=== PATIENT | female | born 1955 | race Caucasian/White ===

== ENCOUNTER 2016-05-27 13:20 | Emergency (ER) | payer BC ==
[2016-05-27 13:31] VITALS: BMI 25.0
--- NOTE | 2016-05-27 15:58 | PDOC ---
History of Present Illness - General History Source: Patient Exam Limitations: No Limitations - History of Present Illness Initial Comments: 05/27/16 18:28 The patient is a 60 year old female, with significant past medical history of HTN, who presents to the emergency room complaining of 3 days of LLQ pain. The patient states that the pain started on Saturday, 3 days ago, as a dull ache while sitting at her desk at work. The pain is nonradiating, constant, and exacerbated upon movement and after eating. The pain has progressively worsened since Saturday. She states that she took medicine to calm her stomach and had an episode of diarrhea. Her last meal was dinner last night, Denies heavy lifting, strenuous activity. Denies fever, chills, nausea, vomiting. Denies constipation. Denies urinary changes, hematuria. Allergies: naproxen, penicillin Social Hx: Tobacco use. Surgical Hx: hysterectomy PCP: Dr. Pelayo <Samantha Gordon - Last Filed: 05/27/16 18:28> <Gurvinder Doll - Last Filed: 05/28/16 02:15> - General Chief Complaint: Pain Stated Complaint: ABD PAIN (REFERRED) Time Seen by Provider: 05/27/16 15:30 Past History <Samantha Gordon - Last Filed: 05/27/16 18:28> - Past Medical History HTN: Yes - Psycho/Social/Smoking Cessation Hx Anxiety: No Suicidal Ideation: No Smoking History: Current some day smoker Number of Cigarettes Smoked Daily: 2 Information on smoking cessation initiated: No Hx Alcohol Use: No Drug/Substance Use Hx: No Substance Use Type: None <Gurvinder Doll - Last Filed: 05/28/16 02:15> - Past Medical History Allergies/Adverse Reactions: Allergies Allergy/AdvReac Type Severity Reaction Status Date / Time naproxen Allergy Hives Verified 05/27/16 13:31 Penicillins Allergy Hives Verified 05/27/16 13:31 Home Medications: Ambulatory Orders Lisinopril/Hydrochlorothiazide [Lisinopril-Hctz 20-25 Mg Tab] 1 each PO DAILY tablet 08/15/13 Pravastatin Sodium [Pravachol (Nf)] 40 mg PO HS 05/27/16 Ranitidine [Zantac -] 150 mg PO BID 04/09/17 Levofloxacin [Levaquin] 750 mg PO TID #7 tablet 05/28/16 Metronidazole [Flagyl -] 500 mg PO DAILY #14 tablet 05/28/16 Oxycodone HCl/Acetaminophen [Percocet 5-325 mg Tablet -] 1 combo PO Q6H PRN #14 tablet MDD 4 05/28/16 Review of Systems - Review of Systems Able to Perform ROS?: Yes Comments:: 05/27/16 18:28 CONSTITUTIONAL: No reported: Fever, Chills, Diaphoresis, Generalized Weakness, Malaise, Loss of Appetite HEENT: No reported: Rhinorrhea, Nasal Congestion, Throat Pain, Throat Swelling, Difficulty Swallowing, Mouth Swelling, Ear Pain, Eye Pain, Visual Changes CARDIOVASCULAR: No reported: Chest Pain, Syncope, Palpitations, Irregular Heart Rate, Lightheadedness, Peripheral Edema RESPIRATORY: No reported: Cough, Shortness of Breath, SOB with Exertion, Orthopnea, Wheezing , Stridor, Hemoptysis GASTROINTESTINAL: Reported: LLQ pain No reported: Abdominal Distension, Nausea, Vomiting, Diarrhea, Constipation, Melena, Hematochezia GENITOURINARY: No reported: Dysuria, Frequency, Urgency, Hesitancy, Flank Pain, Genital Pain MUSCULOSKELETAL: No reported: Myalgia, Arthralgia, Joint Swelling, Back pain, Neck Pain SKIN: No reported: Rash, Itching, Pallor HEMEATOLOGIC/IMMUNOLOGIC: No reported: Easy Bleeding, Easy Bruising, Lymphadenopathy, Frequent infections ENDOCRINE: No reported: Unexplained Weight Gain, Unexplained Weight Loss, Heat Intolerance , Cold Intolerance NEUROLOGIC: No reported: Headache, Focal Weakness, Paresthesias, Vertigo, Lightheadedness, Unsteady Gait, Seizure, Mental Status Changes, Incontinence PSYCHIATRIC: No reported: Anxiety, Depression <Samantha Gordon - Last Filed: 05/27/16 18:28> *Physical Exam - Vital Signs Last Vital Signs Temp Pulse Resp BP Pulse Ox 98.7 F 93 H 20 164/92 98 05/27/16 13:27 05/27/16 13:27 05/27/16 13:27 05/27/16 13:27 05/27/16 13:27 - Physical Exam Comments: 05/27/16 18:28 GENERAL: The patient is awake, alert, and fully oriented, Nontoxic - in no acute distress. HEAD: Normocephalic, atraumatic. EYES: extraocular movements intact, sclera anicteric, conjunctiva clear. ENT: Normal voice, Moist mucous membranes. NECK: Normal range of motion, supple LUNGS: Breath sounds equal, clear to auscultation bilaterally. No wheezes, no rhonchi, no rales. HEART: Regular rate and rhythm, normal S1 and S2 without murmur, rub or gallop. ABDOMEN: +voluntary guarding and LLQ tenderness, no rebound EXTREMITIES: Normal range of motion, no edema. No clubbing or cyanosis. No cords, erythema, or tenderness. NEUROLOGICAL: No facial assymetry, Normal speech, PSYCH: Normal mood, normal affect. SKIN: Warm, Dry, normal turgor, <Samantha Gordon - Last Filed: 05/27/16 18:28> - Vital Signs Last Vital Signs Temp Pulse Resp BP Pulse Ox 98.7 F 93 H 20 164/92 98 05/27/16 13:27 05/27/16 13:27 05/27/16 13:27 05/27/16 13:27 05/27/16 13:27 <Gurvinder Doll - Last Filed: 05/28/16 02:15> ED Treatment Course - LABORATORY CBC & Chemistry Diagram: 05/27/16 16:54 05/27/16 16:54 - ADDITIONAL ORDERS Additional order review: Laboratory Results 05/27/16 16:35 Urine Color Straw Urine Appearance Clear Urine pH 7.0 Ur Specific [place] 1.005 Urine Protein Negative Urine Glucose (UA) Negative Urine Ketones Negative Urine Blood 1+ H Urine Nitrite Negative Urine Bilirubin Negative Urine Urobilinogen Negative Ur Leukocyte Esterase Trace H Urine RBC <1 Urine WBC 2 Ur Epithelial Cells Rare 05/27/16 16:54 RBC 4.12 MCV 90.7 MCHC 33.5 RDW 13.4 MPV 11.1 Neutrophils % 70.6 Lymphocytes % 16.3 Monocytes % 11.6 H Eosinophils % 0.8 Basophils % 0.7 - Medications Given in the ED: ED Medications Discontinued Medications Generic Name Dose Route Start Last Admin Trade Name Freq PRN Reason Stop Dose Admin Sodium Chloride 1,000 mls @ 1,000 mls/hr 05/27/16 16:29 05/27/16 18:06 Normal Saline - IV 05/27/16 17:28 1,000 mls/hr .Q1H ONE Administration Morphine Sulfate 2 mg 05/27/16 16:29 05/27/16 18:04 Morphine Injection - IVPUSH 05/27/16 16:30 2 mg ONCE ONE Administration <Samantha Gordon - Last Filed: 05/27/16 18:28> - LABORATORY CBC & Chemistry Diagram: 05/27/16 16:54 05/27/16 16:54 <Gurvinder Doll - Last Filed: 05/28/16 02:15> Medical Decision Making - Medical Decision Making 05/27/16 23:34 60y F presents with LLQ pain on exam pt has noted tenderness in the LLQ CT c/w acute diverticulitis w/o complications pt requiring multiple narcotic meds - will admit for further management of diverticulitis willg georgette flagyl/levaquin will notify dr. alejandro 05/27/16 23:37 discussed with the pt - she state she feels well currently and would rather go home - will observe the pt for the next hr or two as she is getting abx - if she is feeling well and not needing iv narcotics will d/c with outpatient management of diverticulitis 05/28/16 02:14 pt feeling improved will dc the pt for outpatient management of diverticulitis will hvae pt fu with dr. pelayo tomorrow or saturday return precautions were discussed I discussed the physical exam findings, ancillary test results and final diagnoses with the patient. I answered all of the patient's questions. The patient was satisfied with the care received and felt comfortable with the discharge plan and treatment plan. The patient will call their primary care physician within 24 hours to arrange follow-up and will return to the Emergency Department with any new, persistent or worsening symptoms. <Gurvinder Doll - Last Filed: 05/28/16 02:15> *DC/Admit/Observation/Transfer - Attestations Scribe Attestion: 05/27/16 18:28 Documentation prepared by PHOEBE Negrete, acting as medical accountant for Gurvinder Doll MD. <Samantha Gordon - Last Filed: 05/27/16 18:28> - Discharge Dispostion Admit: No <Gurvinder Doll - Last Filed: 05/28/16 02:15> Diagnosis at time of Disposition: Diverticulitis Qualifiers: Diverticulitis site: large intestine Diverticulitis bleeding: without bleeding Diverticulitis complication: without perforation or abscess Qualified Code(s): K57.32 - Diverticulitis of large intestine without perforation or abscess without bleeding - Discharge Dispostion Disposition: HOME Condition at time of disposition: Improved - Prescriptions Prescriptions: Metronidazole [Flagyl -] 500 mg PO DAILY #14 tablet Levofloxacin [Levaquin] 750 mg PO TID #7 tablet Oxycodone HCl/Acetaminophen [Percocet 5-325 mg Tablet -] 1 combo PO Q6H PRN #14 tablet MDD 4 PRN Reason: Pain - Referrals Referrals: Ayaan Pelayo MD [Primary Care Provider] - - Patient Instructions Printed Discharge Instructions: DI for Diverticulitis Additional Instructions: Return to the emergency department immediately with ANY new, persistent or worsening symptoms including worsening abdominal pain, fevers, inability to tolerate oral intake, chest pain, shortness of breath or any other concerns. Stay well hydrated. You MUST call and follow up with your doctor tomorrow. Your emergency department visit is not complete without a followup with your doctor for reevaluation. Please make sure your doctor reviews the results of your emergency evaluation. Print Language: SAMI
[2016-05-27] MEDS ORDERED: SODIUM CHLORIDE 1,000 ML IV ONE (16:29)
[2016-05-27] MEDS ORDERED: morphine CARPU-JECT 2 MG/1 ML DISP.SYRIN IVPUSH ONE (16:29)
[2016-05-27 16:50] LABS: URINE APPEARANCE CLEAR; URINE BILIRUBIN NEGATIVE (NEGATIVE); URINE BLOOD 1+ (NEGATIVE); URINE COLOR STRAW; URINE GLUCOSE (UA) NEGATIVE (NEGATIVE); URINE KETONE NEGATIVE (NEGATIVE); URINE LEUK ESTERASE TRACE (NEGATIVE); URINE NITRITE NEGATIVE (NEGATIVE); URINE PROTEIN NEGATIVE (NEGATIVE); URINE UROBILINOGEN NEGATIVE E.U./dl (0.2-1.0)
[2016-05-27 16:52] LABS: URINE RBC <1 /hpf (0-3); URINE WBC 2 /hpf (3-5)
[2016-05-27 17:36] LABS: RDW 13.4 % (11.6-15.6)
[2016-05-27 17:40] LABS: BASOPHIL 0.7 % (0-2.0); EOSINOPHIL 0.8 % (0-4.5); MCH 30.4 pg (25.7-33.7); MCHC 33.5 g/dl (32.0-36.0); MEAN CELL VOLUME 90.7 fl (80-96); MEAN PLT VOLUME 11.1 fl (7.5-11.1); NEUTROPHILS 70.6 % (42.8-82.8); PLATELET COUNT 161 K/MM3 (134-434); WHITE BLOOD COUNT 10.3 K/mm3 (4.0-10.0)
[2016-05-27] MEDS ORDERED: morphine CARPU-JECT 2 MG/1 ML DISP.SYRIN ONE (17:54)
[2016-05-27 18:26] LABS: ALBUMIN 3.7 g/dl (3.4-5.0); BILIRUBIN,TOTAL 0.6 mg/dL (0.2-1.0); CALCIUM 8.7 mg/dL (8.5-10.1); COCKROFT - GAULT 50.1245; CREATININE 1.2 mg/dL (0.55-1.02); TOT PROT 6.7 g/dl (6.4-8.2)
[2016-05-27] MEDS ORDERED: morphine CARPU-JECT 4 MG/1 ML DISP.SYRIN IVPUSH ONE (21:05)
[2016-05-27] MEDS ORDERED: morphine CARPU-JECT 4 MG/1 ML DISP.SYRIN ONE (22:49)
[2016-05-27] MEDS ORDERED: METRONIDAZOLE 500 MG PREMIXED 100 ML IVPB ONE (23:33)
[2016-05-27] MEDS ORDERED: LEVOFLOXACIN 750 MG IVPB 150 ML IVPB ONE ×2 (23:33→23:45)
[2016-05-28] MEDS ORDERED: METRONIDAZOLE 500 MG PREMIXED 100 ML IVPB ONE (01:24)
[2016-05-28 02:23] VITALS: BP 119/46; PULSE 59; TEMP 98.1
== END 2016-05-28 02:20 | disposition home or self-care (01) ==
LOC: JER 13:20
PROC: 3E03329 Introduction of Other Anti-infective into Peripheral Vein, Percutaneous Approach (ICD-10-PCS; principal; 2016-05-27)
PROC: 3E03329 Introduction of Other Anti-infective into Peripheral Vein, Percutaneous Approach (ICD-10-PCS; 2016-05-27)
PROC: 3E033NZ Introduction of Analgesics, Hypnotics, Sedatives into Peripheral Vein, Percutaneous Approach (ICD-10-PCS; 2016-05-27)
DX: K57.20 Diverticulitis of large intestine with perforation and abscess without bleeding (principal); I10 Essential (primary) hypertension
CPT/HCPCS: 36415; 74177-TC; 80053; 81003; 81015; 85025; 99283-25

== ENCOUNTER 2018-06-26 10:07 | Inpatient (IN) | payer BC ==
[2018-06-26] MEDS ORDERED: morphine CARPU-JECT 4 MG/1 ML DISP.SYRIN IVPUSH ONE (11:13)
[2018-06-26] MEDS ORDERED: ONDANSETRON 4 MG/2 ML VIAL IVPUSH ONE (11:13)
[2018-06-26] MEDS ORDERED: SODIUM CHLORIDE 1,000 ML IV STA (11:13)
--- NOTE | 2018-06-26 11:26 | PDOC ---
History of Present Illness - General Chief Complaint: Pain, Acute Stated Complaint: FEVER, ABD PAIN Time Seen by Provider: 06/26/18 11:07 History Source: Patient Exam Limitations: No Limitations - History of Present Illness Initial Comments: 06/26/18 11:21 Patient is a 62F with history of diverticulitis and hysterectomy here today complaining of LLQ pain that started two days ago. Patient was evaluated at urgent care and given cipro/flagyl, but has not been able to keep medicine down due to vomiting. Patient states that this feels like her prior episode of diverticulitis. Denies dysuria, last bowel movement this morning, endorses some loose stool. Denies chest pain, shortness of breath. Past History - Past Medical History Allergies/Adverse Reactions: Allergies Allergy/AdvReac Type Severity Reaction Status Date / Time naproxen Allergy Hives Verified 06/26/18 10:29 Penicillins Allergy Hives Verified 06/26/18 10:29 Home Medications: Ambulatory Orders Lisinopril/Hydrochlorothiazide [Lisinopril-Hctz 20-25 Mg Tab] 1 each PO DAILY tablet 08/15/13 Pravastatin Sodium [Pravachol (Nf)] 40 mg PO HS 05/27/16 Ranitidine [Zantac -] 150 mg PO BID 05/27/16 Levofloxacin [Levaquin] 750 mg PO TID #7 tablet 05/28/16 Oxycodone HCl/Acetaminophen [Percocet 5-325 mg Tablet -] 1 combo PO Q6H PRN #14 tablet MDD 4 05/28/16 metroNIDAZOLE [Flagyl -] 500 mg PO DAILY #14 tablet 05/28/16 COPD: No GI Disorders: Yes (diverticulitis) HTN: Yes - Suicide/Smoking/Psychosocial Hx Smoking History: Never smoked Number of Cigarettes Smoked Daily: 2 Hx Alcohol Use: No Drug/Substance Use Hx: No Substance Use Type: None Review of Systems - Review of Systems Able to Perform ROS?: Yes Comments:: 06/26/18 11:24 GENERAL/CONSTITUTIONAL: No fever or chills. No weakness. HEAD, EYES, EARS, NOSE AND THROAT: No change in vision. No sore throat. CARDIOVASCULAR: No chest pain or shortness of breath RESPIRATORY: No cough, wheezing, or hemoptysis. GASTROINTESTINAL: +nausea, +vomiting, +diarrhea. GENITOURINARY: No dysuria, frequency, or change in urination. MUSCULOSKELETAL: No joint or muscle swelling or pain. No neck or back pain. SKIN: No rash NEUROLOGIC: No headache, vertigo, loss of consciousness, or change in strength/ sensation. HEMATOLOGIC/LYMPHATIC: No anemia, easy bleeding, or history of blood clots. ALLERGIC/IMMUNOLOGIC: No hives or skin allergy. *Physical Exam - Vital Signs Last Vital Signs Temp Pulse Resp BP Pulse Ox 98.6 F 78 16 146/76 99 06/26/18 10:06/26/18 10:06/26/18 10:06/26/18 10:06/26/18 10:26 - Physical Exam Comments: 06/26/18 11:26 GENERAL: Awake, alert, and fully oriented, in no acute distress HEAD: No signs of trauma, normocephalic, atraumatic EYES: PERRLA, EOMI, sclera anicteric, conjunctiva clear ENT: Auricles normal inspection, hearing grossly normal, nares patent, oropharynx clear without exudates. Moist mucosa NECK: Normal ROM, supple, no lymphadenopathy, JVD, or masses LUNGS: No distress, speaks full sentences, clear to auscultation bilaterally HEART: Regular rate and rhythm, normal S1 and S2, no murmurs, rubs or gallops, peripheral pulses normal and equal bilaterally. ABDOMEN: Soft, LLQ tenderness. No guarding, no rebound. No masses EXTREMITIES: Normal inspection, Normal range of motion, no edema. No clubbing or cyanosis. NEUROLOGICAL: Cranial nerves II through XII grossly intact. Normal speech, no focal sensorimotor deficits SKIN: Warm, Dry, normal turgor, no rashes or lesions noted. ED Treatment Course - LABORATORY CBC & Chemistry Diagram: 06/27/18 07:40 06/27/18 07:40 - RADIOLOGY Radiology Studies Ordered: Category Date Time Status ABDOMEN & PELVIS CT WITH CONTR [CT] Stat CT Scan 06/26/18 11:14 Ordered Medical Decision Making - Medical Decision Making 06/26/18 11:29 Patient is 62F with history of hysterectomy and diverticulitis here today with LLQ pain. Vitals normal and stable. DDx includes, but is not limited to: UTI, diverticulitis, colitis. Suspect diverticulitis and that patient will require admission due to inability to tolerate her medication. Will treat initially with fluids, morphine, zofran. 06/26/18 12:35 CBC normal. CMP shows Cr of 4.2, last 1.2 in 2017. ~10:1 BUN:Cr ratio, not consistent with pre-renal etiology, but still possible given vomiting and diarrhea. No gap. K normal. Given lower quality of CT without contrast, will cover empirically with levaquin 750 (renal adjustment is for next dose in 48 hours) and metronidazole ( no renal adjustment). Pain improved with morphine. No vomiting after zofran. 06/26/18 14:03 CT scan shows diverticulitis. Will admit. Savannah Guillory paged. *DC/Admit/Observation/Transfer Diagnosis at time of Disposition: Diverticulitis Qualifiers: Diverticulitis site: large intestine Diverticulitis bleeding: without bleeding Diverticulitis complication: without perforation or abscess Qualified Code(s): K57.32 - Diverticulitis of large intestine without perforation or abscess without bleeding - Discharge Dispostion Condition at time of disposition: Stable - Referrals - Patient Instructions - Post Discharge Activity
[2018-06-26 11:44] LABS: EOS % 0.3 % (0-4.5); HEMATOCRIT 37.1 % (32.4-45.2); HEMOGLOBIN 12.4 GM/dL (10.7-15.3); LYMPH % 17.2 % (8-40); MCHC 33.4 g/dl (32.0-36.0); MEAN CELL VOLUME 92.7 fl (80-96); MEAN PLT VOLUME 10.8 fl (7.5-11.1); MONO % 12.9 % (3.8-10.2); NEUT % 68.6 % (42.8-82.8); PLATELET COUNT 229 K/MM3 (134-434); RDW 12.9 % (11.6-15.6); WHITE BLOOD COUNT 8.7 K/mm3 (4.0-10.0)
[2018-06-26] MEDS ORDERED: morphine SULFATE 4 MG/ML VIAL ONE (11:48)
[2018-06-26] MEDS ORDERED: ONDANSETRON 4 MG/2 ML VIAL ONE (11:49)
[2018-06-26 12:06] LABS: INR 1.23 (0.83-1.09); PROTHROMBIN TIME (PATIENT) 14.5 SEC (9.7-13.0)
[2018-06-26 12:12] LABS: ALBUMIN 4.1 g/dl (3.4-5.0); BILIRUBIN,TOTAL 0.4 mg/dL (0.2-1); CALCIUM 10.3 mg/dL (8.5-10.1); CREATININE 4.2 mg/dL (0.55-1.3); POTASSIUM 4.2 mmol/L (3.5-5.1); TOT PROT 7.6 g/dl (6.4-8.2)
--- NOTE | 2018-06-26 12:27 | PDOC ---
Documentation entered by Sylwia Ibarra SCRIBE, acting as scribe for Chris Prasad MD. Chris Prasad MD: This documentation has been prepared by the Stacey wiley Amanda, SCRIBE, under my direction and personally reviewed by me in its entirety. I confirm that the documentation accurately reflects all work, treatment, procedures, and medical decision making performed by me. Attending Attestation - Resident Resident Name: Jordan Urrutia - HPI HPI: 06/26/18 11:40 The patient is a 62 year old female with a significant history of diverticulitis (last episode in 2018) and hysterectomy, who presents to the ED with complaint of left lower quadrant pain for 8 days. Two days ago went to urgent care and started on cipro and flagyl, but reports inability to tolerate anything by PO secondary to nausea and vomiting. She states this feels like her prior episode of diverticulitis. Has persistent/worsening LLQ pain and pain with defecation, no bloody stool. temp 99.8 last night. never had colonoscopy. She denies CP, SOB, dizziness, headache, palpitations. She denies dysuria and hematuria. Allergies: naproxen, penicillins - Physicial Exam PE: 06/26/18 11:45 GENERAL: The patient is awake, alert, and fully oriented, in no acute distress. HEAD: Normal with no signs of trauma. EYES: Pupils equal, round and reactive to light, extraocular movements intact, sclera anicteric, conjunctiva clear with no pallor. ENT: oropharynx clear. Dry mucous membranes. LUNGS: Breath sounds equal, clear to auscultation bilaterally. No wheeze/ crackles. HEART: Regular rate and rhythm, normal S1 and S2 without murmur or rub. ABDOMEN: Soft/nondistended. BS wnl. Tender with LLQ guarding, + rebound. No CVAT. No palpable masses. No hepatosplenomegaly. EXTREMITIES: Normal range of motion, no edema. No clubbing or cyanosis. No cords, erythema, or tenderness. NEUROLOGICAL: Cranial nerves II through XII grossly intact. Normal speech, normal gait. PSYCH: Normal mood, normal affect. SKIN: Warm, Dry, normal turgor, no rashes or lesions noted. - Medical Decision Making 05/09/19 12:26 62y/o F h/o diverticulitis p/w worsening pain and inability to tolerate PO, failing outpt abx due to inability to tolerate PO, focal peritoneal findings in LLQ, low grade fevers, dehydrated. labs, ua ctap iv abx admission
[2018-06-26] MEDS ORDERED: SODIUM CHLORIDE 0.45% 1,000 ML IV SCH (15:45)
--- NOTE | 2018-06-26 20:53 | CON.GI ---
Consult Consult Specialty:: Gastroenterology Referred by:: Christie Cornelius MD Reason for Consultation:: Abdominal pain - History of Present Illness Chief Complaint: LLQ pain and chills History of Present Illness: 62F developed LLQ pain a weeks ago. Was seen in [facility] 2 days ago and started on Cipro and Flagy. Came to ER today when she failed to improve and could not keep the pills down due to nausea. CT reveals descending colon diverticulitis but no abscess. She also has back pain and renal failure. She had an attack of diverticulitis is 2017. She has never had a colonoscopy or an EGD. Her father of gastric cancer. She was constipated when this pain began and has been having only loose BMs since the pain began. Her PMD is Dr Chowdhury - History Source History Provided By: Patient Limitations to Obtaining History: No Limitations - Past Medical History Cardio/Vascular: Yes: HTN, Hyperlipdemia Gastrointestinal: Yes: Diverticulitis - Past Surgical History Past Surgical History: Yes: Hysterectomy (TAHBSO for fibroids) - Alcohol/Substance Use Hx Alcohol Use: Yes (rare) History of Substance Use: reports: None - Smoking History Smoking history: Current every day smoker Aproximately how many cigarettes per day: 2 - Social History Usual Living Arrangement: With Spouse ADL: Independent Occupation: rd scientist at [employer] Place of : Other ([place]) Came to [place] (year[place] age 10 History of Recent Travel: No Home Medications - Allergies Allergies/Adverse Reactions: Allergies Allergy/AdvReac Type Severity Reaction Status Date / Time naproxen Allergy Hives Verified 06/26/18 10:29 Penicillins Allergy Hives Verified 06/26/18 10:29 - Home Medications Home Medications: Ambulatory Orders Lisinopril/Hydrochlorothiazide [Lisinopril-Hctz 20-25 Mg Tab] 1 each PO DAILY tablet 08/15/13 Pravastatin Sodium [Pravachol (Nf)] 40 mg PO HS 05/27/16 Ranitidine [Zantac -] 150 mg PO BID 05/27/16 Levofloxacin [Levaquin] 750 mg PO TID #7 tablet 05/28/16 Oxycodone HCl/Acetaminophen [Percocet 5-325 mg Tablet -] 1 combo PO Q6H PRN #14 tablet MDD 4 05/28/16 metroNIDAZOLE [Flagyl -] 500 mg PO DAILY #14 tablet 05/28/16 Family Disease History - Family Disease History Family Disease History: CA: Father ( gastric cancer 85), Other: Mother ( 81 CVA) Review of Systems - Review of Systems Constitutional: reports: Chills, Fever, Loss of Appetite, Weakness Eyes: reports: No Symptoms HENT: reports: No Symptoms Neck: reports: No Symptoms Cardiovascular: reports: No Symptoms Respiratory: reports: No Symptoms Gastrointestinal: reports: Abdominal Pain, Constipation, Nausea Musculoskeletal: reports: Back Pain Physical Exam-GI Vital Signs: Vital Signs Temperature 99.8 F H 06/26/18 20:26 Pulse Rate 64 06/26/18 20:26 Respiratory Rate 18 06/26/18 20:26 Blood Pressure 111/58 L 06/26/18 20:26 O2 Sat by Pulse Oximetry (%) 99 06/26/18 10:26 CBC,CMP WBC 8.7 K/mm3 (4.0-10.0) 06/26/18 11:33 RBC 4.00 M/mm3 (3.60-5.2) 06/26/18 11:33 Hgb 12.4 GM/dL (10.7-15.3) 06/26/18 11:33 Hct 37.1 % (32.4-45.2) 06/26/18 11:33 MCV 92.7 fl (80-96) 06/26/18 11:33 MCH 31.0 pg (25.7-33.7) 06/26/18 11:33 MCHC 33.4 g/dl (32.0-36.0) 06/26/18 11:33 RDW 12.9 % (11.6-15.6) 06/26/18 11:33 Plt Count 229 K/MM3 (134-434) D 06/26/18 11:33 MPV 10.8 fl (7.5-11.1) 06/26/18 11:33 Absolute Neuts (auto) 6.0 K/mm3 (1.5-8.0) 06/26/18 11:33 Neutrophils % 68.6 % (42.8-82.8) 06/26/18 11:33 Lymphocytes % 17.2 % (8-40) 06/26/18 11:33 Monocytes % 12.9 % (3.8-10.2) H 06/26/18 11:33 Eosinophils % 0.3 % (0-4.5) 06/26/18 11:33 Basophils % 1.0 % (0-2.0) 06/26/18 11:33 Nucleated RBC % 0 % (0-0) 06/26/18 11:33 Sodium 133 mmol/L (136-145) L 06/26/18 11:33 Potassium 4.2 mmol/L (3.5-5.1) 06/26/18 11:33 Chloride 97 mmol/L (98-107) L 06/26/18 11:33 Carbon Dioxide 27 mmol/L (21-32) 06/26/18 11:33 Anion Gap 9 MMOL/L (8-16) 06/26/18 11:33 BUN 38 mg/dL (7-18) H 06/26/18 11:33 Creatinine 4.2 mg/dL (0.55-1.3) H 06/26/18 11:33 Est GFR (CKD-EPI)AfAm 12.51 06/26/18 11:33 Est GFR (CKD-EPI)NonAf 10.79 06/26/18 11:33 Random Glucose 104 mg/dL (74-106) 06/26/18 11:33 Calcium 10.3 mg/dL (8.5-10.1) H 06/26/18 11:33 Total Bilirubin 0.4 mg/dL (0.2-1) 06/26/18 11:33 AST 20 U/L (15-37) 06/26/18 11:33 ALT 16 U/L (13-61) 06/26/18 11:33 Alkaline Phosphatase 99 U/L (45-117) 06/26/18 11:33 Total Protein 7.6 g/dl (6.4-8.2) 06/26/18 11:33 Albumin 4.1 g/dl (3.4-5.0) 06/26/18 11:33 Lipase 234 U/L (73-393) 06/26/18 11:33 Current Medications Generic Name Dose Route Start Last Admin Trade Name Freq PRN Reason Stop Dose Admin Metronidazole 500 mg in 100 mls @ 100 mls/hr 06/26/18 18:00 06/26/18 19:20 Flagyl 500mg Premixed Ivpb - IVPB 100 mls/hr Q8H-IV QUEENIE Administration Levofloxacin 250 mg in 50 mls @ 50 mls/hr 06/28/18 10:00 Levaquin 250 Mg Premixed Ivpb - IVPB Q2D@1000 QUEENIE Protocol Sodium Chloride 1,000 mls @ 100 mls/hr 06/26/18 15:45 06/26/18 16:07 1/2 Normal Saline IV 100 mls/hr ASDIR QUEENIE Administration Metoclopramide HCl 10 mg 06/26/18 20:46 Reglan Injection - IVPUSH Q6H PRN NAUSEA AND/OR VOMITING Constitutional: Yes: Anxious Eyes: Yes: Conjunctiva Clear HENT: Yes: Normocephalic Neck: Yes: Supple Cardiovascular: Yes: Regular Rate and Rhythm Respiratory: Yes: CTA Bilaterally Gastrointestinal Inspection: Yes: Scars (healed vertical suprapubuc incision) ...Auscultate: Yes: Normoactive Bowel Sounds ...Palpate: Yes: Soft, Tenderness (LLQ, no rebound) ...Rectal Exam: Yes: Guaiac Negative (brown lose g neg stool) Labs: CBC, BMP 06/26/18 11:33 06/26/18 11:33 INR, PTT INR 1.23 (0.83-1.09) H 06/26/18 11:33 Imaging - Results Cat Scan: Report Reviewed ( Final Report CT ABDOMEN & PELVIS CT W/O CONTR Show Printer-Friendly Version Patient Name: Yoselyn Hernandesomara : Oct-1955 ID: [id number] Study Date: 26-Jun-2018 12:46 [facility] Name: ALEXEY HERNANDES DEPARTMENT OF RADIOLOGY Phys: Jordan Urrutia RESIDENT : 1955 Age: 62 Sex: F [facility] Acct: [id number] Loc: [address] Exam Date: 06/26/18 Status: ELLA Hernandez [id number] Unit Number: [id number] EXAM#: TYPE/EXAM: RESULT: [id number] CT/ABDOMEN PELVIS CT W/O CONTR HISTORY PROVIDED: Left lower quadrant pain TECHNIQUE: Sequential axial images were obtained from the domes of the diaphragm through the symphysis pubis The study is limited without the use of any contrast material. The liver, spleen, pancreas, adrenal glands and kidneys demonstrate no significant abnormalities. There is no evidence of intra- abdominal or retroperitoneal lymphadenopathy or fluid collections. There is thickening and irregularity of the distal descending colon with inflammatory changes in the adjacent mesenteric fat. Diverticula are noted in this location and this appearance is consistent with acute diverticulitis. No abscess is associated with this process. There is no evidence of pneumoperitoneum, bowel obstruction or intra-abdominal abscess. Examination of the pelvis demonstrates no evidence of pelvic masses, fluid collections or lymphadenopathy. There is no evidence of acute bony pathology. There is a moderate dextroscoliosis of the lumbar spine. IMPRESSION: Findings consistent with acute diverticulitis of the distal descending colon without abscess formation. Clinical correlation and follow-up recommended. Please see above discussion. Reported By: Dylon Sneed MD 06/26/18 1314 Jordan Urrutia Technologist: Artemio Avilez Transcribed Date/Time: 06/26/18 1314 Computer Networking Instructor: Dylon Sneed Printed Date/Time: By: Signed by: Dylon Sneed Signed on: 26-Jun-2018 13:14) Problem List - Problems (1) Diverticulitis Assessment/Plan: The CT supports the diagnosis of diverticulitis. I have advised a colonoscopy after discharge and 8 weeks of recovery to exclude a malignancy masquerading as diverticulitis Code(s): K57.92 - DVTRCLI OF INTEST, PART UNSP, W/O PERF OR ABSCESS W/O BLEED Qualifiers: Diverticulitis site: large intestine Diverticulitis bleeding: without bleeding Diverticulitis complication: without perforation or abscess Qualified Code(s): K57.32 - Diverticulitis of large intestine without perforation or abscess without bleeding (2) Renal failure Assessment/Plan: Suspect prerenal azotemia but could alternatively be an ATN, NSAIDs,etc. No hydro seen on CT but will order renal sonogram. Will order renal sonogram, CPK and brisk fluids Code(s): N19 - UNSPECIFIED KIDNEY FAILURE Qualifiers: Renal failure chronicity: acute (3) Hypertension Code(s): I10 - ESSENTIAL (PRIMARY) HYPERTENSION (4) Hyperlipemia Code(s): E78.5 - HYPERLIPIDEMIA, UNSPECIFIED (5) Family history of gastric cancer Code(s): Z80.0 - FAMILY HISTORY OF MALIGNANT NEOPLASM OF DIGESTIVE ORGANS (6) Back pain Code(s): M54.9 - DORSALGIA, UNSPECIFIED Qualifiers: Back pain location: low back pain (7) Hypercalcemia Assessment/Plan: Will order PTH, PO4, SPEP and ionized calcium. Brisk fluids ordered Code(s): E83.52 - HYPERCALCEMIA Assessment/Plan Impression Left colon diverticulitis Renal failure ? prerenal vs ATN or drug injury. Hypercalcemia- no reversal in A/G ratio. Pain may indicate a collapsed vertebra or ureteral stone Plan: Continue antibiotics IV fluids Renal sonogram Ionized calcium PO4, CPK, etc IV acetaminophen for fever and pain
[2018-06-26] MEDS: METOCLOPRAMIDE HCL INJECTION 10 MG/2 ML VIAL IVPUSH PRN (21:25)
[2018-06-26] MEDS: ACETAMINOPHEN 1000 MG/100 ML VIAL (NON FORMULARY) IVPB PRN (21:29)
[2018-06-26] MEDS: DEXTROSE 5%-0.45% SALINE 1,000 ML IV SCH (22:14)
[2018-06-27 01:00] LABS: EPI CELLS 0.6 /HPF (0-5/HPF); URINE APPEARANCE CLEAR; URINE BACTERIA 1.4 /hpf (NEGATIVE); URINE BILIRUBIN NEGATIVE (NEGATIVE); URINE CASTS 3 /lpf (0-8); URINE COLOR YELLOW; URINE GLUCOSE (UA) NEGATIVE (NEGATIVE); URINE KETONE NEGATIVE (NEGATIVE); URINE LEUK ESTERASE NEGATIVE (NEGATIVE); URINE NITRITE NEGATIVE (NEGATIVE); URINE PROTEIN 1+ (NEGATIVE); URINE RBC 5 /hpf (0-4); URINE UROBILINOGEN 0.2 mg/dL (0.2-1.0); URINE WBC 1 /hpf (0-5)
[2018-06-27 02:44] VITALS: BMI 24.5
[2018-06-27] MEDS: DEXTROSE 5%-0.45% SALINE 1,000 ML IV SCH (06:28)
[2018-06-27 07:55] LABS: BASO % 0.5 % (0-2.0); EOS % 0.9 % (0-4.5); HEMATOCRIT 31.6 % (32.4-45.2); HEMOGLOBIN 10.6 GM/dL (10.7-15.3); LYMPH % 15.1 % (8-40); MCH 31.3 pg (25.7-33.7); MCHC 33.6 g/dl (32.0-36.0); MEAN CELL VOLUME 93.1 fl (80-96); MEAN PLT VOLUME 10.2 fl (7.5-11.1); MONO % 14.6 % (3.8-10.2); NEUT % 68.9 % (42.8-82.8); PLATELET COUNT 186 K/MM3 (134-434); RBC 3.39 M/mm3 (3.60-5.2); RDW 12.6 % (11.6-15.6); WHITE BLOOD COUNT 6.2 K/mm3 (4.0-10.0)
[2018-06-27 08:18] LABS: URIC ACID 8.6 mg/dL (2.6-7.2)
--- NOTE | 2018-06-27 12:05 | HP ---
Admitting History and Physical - Primary Care Physician PCP: Ayaan Chowdhury - Admission History of Present Illness: Pt seen/ examined. Chart reviewed The patient is a 62 year old female with a significant history of diverticulitis (last episode in 2018) and hysterectomy, who presents to the ED with complaint of left lower quadrant pain for 8 days. Two days ago went to urgent care and started on cipro and flagyl, but reports inability to tolerate anything by PO secondary to nausea and vomiting Pt found to have acute diverticulitis/ Arf started on abx fluids marci/diuretics held pt feels better today passing urine refuses pollock family at bedside seen by gi -- appreciated never had colonoscopy renal consult pending History Source: Patient Limitations to Obtaining History: No Limitations - Past Medical History Cardiovascular: Yes: HTN, Hyperlipdemia Gastrointestinal: Yes: Diverticulitis - Past Surgical History Past Surgical History: Yes: Hysterectomy (TAHBSO for fibroids) - Smoking History Smoking history: Current every day smoker Aproximately how many cigarettes per day: 2 - Alcohol/Substance Use Hx Alcohol Use: Yes (rare) History of Substance Use: reports: None - Social History ADL: Independent Occupation: cat sitter at [employer] History of Recent Travel: No Home Medications - Allergies Allergies/Adverse Reactions: Allergies Allergy/AdvReac Type Severity Reaction Status Date / Time naproxen Allergy Hives Verified 06/26/18 10:29 Penicillins Allergy Hives Verified 06/26/18 10:29 - Home Medications Home Medications: Ambulatory Orders Lisinopril/Hydrochlorothiazide [Lisinopril-Hctz 20-25 Mg Tab] 1 each PO DAILY tablet 08/15/13 Pravastatin Sodium [Pravachol (Nf)] 40 mg PO HS 05/27/16 Ranitidine [Zantac -] 150 mg PO BID 05/27/16 Levofloxacin [Levaquin] 750 mg PO TID #7 tablet 05/28/16 Oxycodone HCl/Acetaminophen [Percocet 5-325 mg Tablet -] 1 combo PO Q6H PRN #14 tablet MDD 4 05/28/16 metroNIDAZOLE [Flagyl -] 500 mg PO DAILY #14 tablet 05/28/16 Family Disease History - Family Disease History Family Disease History: CA: Father ( gastric cancer 85), Other: Mother ( 81 CVA) Review of Systems - Review of Systems Constitutional: reports: Loss of Appetite, Weakness Eyes: reports: No Symptoms HENT: reports: No Symptoms Neck: reports: No Symptoms Cardiovascular: reports: No Symptoms Respiratory: reports: No Symptoms Gastrointestinal: reports: Abdominal Pain Genitourinary: reports: No Symptoms Neurological: reports: No Symptoms Psychiatric: reports: No Symptoms Physical Examination Vital Signs: Vital Signs Temperature 98.6 F 06/27/18 09:45 Pulse Rate 67 06/27/18 09:45 Respiratory Rate 18 06/27/18 09:45 Blood Pressure 114/59 L 06/27/18 09:45 O2 Sat by Pulse Oximetry (%) 99 06/26/18 21:00 Constitutional: Yes: No Distress, Calm Eyes: Yes: Conjunctiva Clear Neck: Yes: Supple Cardiovascular: Yes: Regular Rate and Rhythm Respiratory: Yes: CTA Bilaterally Gastrointestinal: Yes: Soft, Tenderness, Rebound (llq . BS + . No R/R.) Edema: No Neurological: Yes: Alert Labs: CBC, BMP 06/27/18 07:40 Imaging - Results Cat Scan: Report Reviewed EKG: Report Reviewed Problem List - Problems (1) Diverticulitis Code(s): K57.92 - DVTRCLI OF INTEST, PART UNSP, W/O PERF OR ABSCESS W/O BLEED Qualifiers: Diverticulitis site: large intestine Diverticulitis bleeding: without bleeding Diverticulitis complication: without perforation or abscess Qualified Code(s): K57.32 - Diverticulitis of large intestine without perforation or abscess without bleeding (2) Hypertension Code(s): I10 - ESSENTIAL (PRIMARY) HYPERTENSION (3) Renal failure Code(s): N19 - UNSPECIFIED KIDNEY FAILURE Qualifiers: Renal failure chronicity: acute Assessment/Plan Fluids Abx marci/ diuretics held u/s kidneys monitor labs dvt prophylaxis will need Colonoscopy as out pt-- oob - chair will follow Discussed with pt and pts family. Discussed with nursing staff also
[2018-06-27 12:30] LABS: CREATININE 5.5 mg/dL (0.55-1.3)
[2018-06-27 12:31] LABS: ALBUMIN 2.9 g/dl (3.4-5.0)
[2018-06-27 12:40] LABS: BILIRUBIN,TOTAL 0.4 mg/dL (0.2-1); CALCIUM 7.9 mg/dL (8.5-10.1); PHOSPHOROUS 3.7 mg/dL (2.5-4.9); POTASSIUM 4.1 mmol/L (3.5-5.1); TOT PROT 5.3 g/dl (6.4-8.2)
--- NOTE | 2018-06-27 14:51 | PN.GI ---
GI Progress Note Subjective: GI NOte: Abdominal pain improving. Tolerating clear liquids. Back pain resolved. Nausea slightly improved. Renal function has not yet responded to IV fluids. Sonogram reveals no obstruction or kidney shrinkage. - Objective Vital Signs: Vital Signs Temperature 98.6 F 06/27/18 09:45 Pulse Rate 67 06/27/18 09:45 Respiratory Rate 18 06/27/18 09:45 Blood Pressure 114/59 L 06/27/18 09:45 O2 Sat by Pulse Oximetry (%) 99 06/27/18 09:00 Laboratory Tests 06/26/18 06/27/18 06/27/18 11:33 07:40 07:40 WBC 6.2 Hgb 10.6 L BUN 38 H 41 H Creatinine 4.2 H 5.5 H Uric Acid Calcium 10.3 H 7.9 L Phosphorus 3.7 Total Bilirubin 0.4 C-Reactive Protein Albumin 2.9 L PTH Intact 06/27/18 06/27/18 07:40 07:40 WBC Hgb BUN Creatinine Uric Acid 8.6 H Calcium Phosphorus Total Bilirubin C-Reactive Protein 6.7 H Albumin PTH Intact Pending Constitutional: Calm ...Auscultate: Yes: Normoactive Bowel Sounds ...Palpate: Yes: Soft, Other (nontender) Labs: CBC, BMP 06/27/18 07:40 06/27/18 07:40 INR, PTT INR 1.23 (0.83-1.09) H 06/26/18 11:33 Assessment/Plan Impression Left colon diverticulitis improving Renal failure ? prerenal vs ATN or drug injury. Discussed case with Dr Marte Hypercalcemia resolved. 8.5 with correction for hypoalbuminemia Plan: Continue antibiotics Continue IV fluids Full liquid diet IV acetaminophen for fever and pain Dr Looney will be covering this weekend Problem List - Problems (1) Diverticulitis Code(s): K57.92 - DVTRCLI OF INTEST, PART UNSP, W/O PERF OR ABSCESS W/O BLEED Qualifiers: Diverticulitis site: large intestine Diverticulitis bleeding: without bleeding Diverticulitis complication: without perforation or abscess Qualified Code(s): K57.32 - Diverticulitis of large intestine without perforation or abscess without bleeding (2) Renal failure Code(s): N19 - UNSPECIFIED KIDNEY FAILURE Qualifiers: Renal failure chronicity: acute (3) Hypertension Code(s): I10 - ESSENTIAL (PRIMARY) HYPERTENSION (4) Hyperlipemia Code(s): E78.5 - HYPERLIPIDEMIA, UNSPECIFIED (5) Family history of gastric cancer Code(s): Z80.0 - FAMILY HISTORY OF MALIGNANT NEOPLASM OF DIGESTIVE ORGANS (6) Back pain Code(s): M54.9 - DORSALGIA, UNSPECIFIED Qualifiers: Back pain location: low back pain (7) Hypercalcemia Code(s): E83.52 - HYPERCALCEMIA
--- NOTE | 2018-06-27 15:02 | EKG ---
Test Reason : Blood Pressure : / mmHG Vent. Rate : 060 BPM Atrial Rate : 060 BPM P-R Int : 114 ms QRS Dur : 074 ms QT Int : 404 ms P-R-T Axes : 078 076 072 degrees QTc Int : 404 ms NORMAL SINUS RHYTHM NORMAL ECG NO PREVIOUS ECGS AVAILABLE Confirmed by FUENTES ALICEA MD ([id number]) on 06/27/2018 3:02:25 PM Referred By: Confirmed By:FUENTES ALICEA MD
--- NOTE | 2018-06-27 15:55 | CONSULT ---
Consult Consult Specialty:: Nephrology Reason for Consultation:: KEON - History of Present Illness Chief Complaint: vomiting History of Present Illness: Pt is a 62 year old female with history of diverticulitis who presents to the ER with nausea and vomiting. She has had abdominal pain and was on cipro and flagyl. She is being treated for diverticulitis. She was found to have elevated creatinine which did not respond to fluids. She denies history of CKD. She denies dysuria or hematuria. She denies nsaid use. She denies shortness of breath. SHe has not eaten or drank much of anything in the last week. - History Source History Provided By: Patient, Medical Record - Past Medical History Cardio/Vascular: Yes: HTN, Hyperlipdemia Gastrointestinal: Yes: Diverticulitis - Past Surgical History Past Surgical History: Yes: Hysterectomy (TAHBSO for fibroids) - Alcohol/Substance Use Hx Alcohol Use: Yes (rare) History of Substance Use: reports: None - Smoking History Smoking history: Current every day smoker Aproximately how many cigarettes per day: 2 - Social History Usual Living Arrangement: With Spouse ADL: Independent Occupation: [employer] History of Recent Travel: No Home Medications - Allergies Allergies/Adverse Reactions: Allergies Allergy/AdvReac Type Severity Reaction Status Date / Time naproxen Allergy Hives Verified 06/26/18 10:29 Penicillins Allergy Hives Verified 06/26/18 10:29 - Home Medications Home Medications: Ambulatory Orders Lisinopril/Hydrochlorothiazide [Lisinopril-Hctz 20-25 Mg Tab] 1 each PO DAILY tablet 08/15/13 Pravastatin Sodium [Pravachol (Nf)] 40 mg PO HS 05/27/16 Ranitidine [Zantac -] 150 mg PO BID 05/27/16 Levofloxacin [Levaquin] 750 mg PO TID #7 tablet 05/28/16 Oxycodone HCl/Acetaminophen [Percocet 5-325 mg Tablet -] 1 combo PO Q6H PRN #14 tablet MDD 4 05/28/16 metroNIDAZOLE [Flagyl -] 500 mg PO DAILY #14 tablet 05/28/16 Family Disease History - Family Disease History Family Disease History: CA: Father ( gastric cancer 85), Other: Mother ( 81 CVA) Review of Systems - Review of Systems Constitutional: reports: Chills, Malaise Eyes: reports: No Symptoms HENT: reports: No Symptoms Neck: reports: No Symptoms Cardiovascular: reports: No Symptoms Respiratory: reports: No Symptoms Gastrointestinal: reports: Abdominal Pain, Diarrhea, Nausea, Vomiting Genitourinary: reports: No Symptoms Musculoskeletal: reports: No Symptoms Integumentary: reports: No Symptoms Neurological: reports: No Symptoms Endocrine: reports: No Symptoms Physical Exam Vital Signs: Vital Signs Temperature 98.6 F 06/27/18 14:30 Pulse Rate 67 06/27/18 14:30 Respiratory Rate 18 06/27/18 14:30 Blood Pressure 132/70 06/27/18 14:30 O2 Sat by Pulse Oximetry (%) 99 06/27/18 09:00 Constitutional: Yes: Calm Eyes: Yes: Conjunctiva Clear HENT: Yes: Atraumatic Neck: Yes: Supple Cardiovascular: Yes: S1, S2 Respiratory: Yes: CTA Bilaterally Gastrointestinal: Yes: Tenderness Renal/: Yes: WNL Musculoskeletal: Yes: WNL Edema: No Neurological: Yes: Oriented Psychiatric: Yes: Oriented Labs: CBC, BMP 06/27/18 07:40 06/27/18 07:40 Laboratory Tests 05/27/16 06/26/18 06/26/18 16:54 11:33 11:33 WBC 8.7 Hgb 12.4 Sodium BUN 38 H Creatinine 1.2 H 4.2 H Calcium 10.3 H Total Protein (PEP) Albumin 4.1 Albumin (PEP) Globulin Albumin/Globulin Ratio Beta Globulins Urine Protein Urine Blood Urine WBC (Auto) MARTELL M-Bharat Hep Bs Antigen Hep Bs Antibody Hep B Core Total Ab 06/27/18 06/27/18 06/27/18 00:05 07:40 07:40 WBC 6.2 Hgb 10.6 L Sodium 135 L BUN 41 H Creatinine 5.5 H Calcium 7.9 L Total Protein (PEP) Albumin Albumin (PEP) Globulin Albumin/Globulin Ratio Beta Globulins Urine Protein 1+ H Urine Blood Negative Urine WBC (Auto) 1 MARTELL M-Bharat Hep Bs Antigen Hep Bs Antibody Hep B Core Total Ab 06/27/18 06/27/18 07:40 07:40 WBC Hgb Sodium BUN Creatinine Calcium Total Protein (PEP) Pending Albumin Albumin (PEP) Pending Globulin Pending Albumin/Globulin Ratio Pending Beta Globulins Pending Urine Protein Urine Blood Urine WBC (Auto) MARTELL M-Bharat Pending Hep Bs Antigen Pending Hep Bs Antibody Pending Hep B Core Total Ab Pending Imaging - Results Cat Scan: Report Reviewed Ultrasound: Report Reviewed Problem List - Problems (1) Renal failure Code(s): N19 - UNSPECIFIED KIDNEY FAILURE Qualifiers: Renal failure chronicity: acute (2) Diverticulitis Code(s): K57.92 - DVTRCLI OF INTEST, PART UNSP, W/O PERF OR ABSCESS W/O BLEED Qualifiers: Diverticulitis site: large intestine Diverticulitis bleeding: without bleeding Diverticulitis complication: without perforation or abscess Qualified Code(s): K57.32 - Diverticulitis of large intestine without perforation or abscess without bleeding Assessment/Plan Current Medications Generic Name Dose Route Start Last Admin Trade Name Freq PRN Reason Stop Dose Admin Acetaminophen 1,000 mg 06/26/18 20:55 06/26/18 21:29 Ofirmev Injection - IVPB 1,000 mg Q6H PRN Administration FEVER Enoxaparin Sodium 30 mg 06/27/18 20:00 Lovenox - SQ DAILY QUEENIE Metronidazole 500 mg in 100 mls @ 100 mls/hr 06/26/18 18:00 06/27/18 09:18 Flagyl 500mg Premixed Ivpb - IVPB 100 mls/hr Q8H-IV QUEENIE Administration Levofloxacin 250 mg in 50 mls @ 50 mls/hr 06/28/18 10:00 Levaquin 250 Mg Premixed Ivpb - IVPB Q2D@1000 QUEENIE Protocol Dextrose/Sodium Chloride 1,000 mls @ 150 mls/hr 06/26/18 21:15 06/27/18 06:28 D5-1/2ns - IV 150 mls/hr ASDIR QUEENIE Administration Metoclopramide HCl 10 mg 06/26/18 20:46 06/26/18 21:25 Reglan Injection - IVPUSH 10 mg Q6H PRN Administration NAUSEA AND/OR VOMITING Impression 1. KEON 2. HTN 3. diverticulitis 4. nausea Plan - renal function is worsening - change fluids to normal saline - hold lisinopril and thiazide - check urine lytes, may be innacurate as she is on fluids - will send renal workup as renal function is worsening - check urine eos - renal ultrasound neg for obstruction
[2018-06-27] MEDS: SODIUM CHLORIDE 1,000 ML IV SCH (17:03)
[2018-06-27] MEDS: METOCLOPRAMIDE HCL INJECTION 10 MG/2 ML VIAL IVPUSH PRN (17:03)
[2018-06-27 19:14] LABS: PH,URINE 5.5 (5.0-8.0); URINE APPEARANCE CLEAR; URINE BILIRUBIN NEGATIVE (NEGATIVE); URINE COLOR YELLOW; URINE GLUCOSE (UA) NEGATIVE (NEGATIVE); URINE KETONE NEGATIVE (NEGATIVE); URINE LEUK ESTERASE TRACE (NEGATIVE); URINE NITRITE NEGATIVE (NEGATIVE); URINE PROTEIN NEGATIVE (NEGATIVE); URINE UROBILINOGEN 0.2 mg/dL (0.2-1.0)
[2018-06-27 20:50] LABS: EPI CELLS 0.6 /HPF (0-5/HPF); URINE RBC 0.7 /hpf (0-4); URINE WBC 1.9 /hpf (0-5)
[2018-06-27 20:51] LABS: URINE BACTERIA 18.1 /hpf (NEGATIVE); URINE CASTS 0.73 /lpf (0-8)
[2018-06-27] MEDS: ENOXAPARIN NA (PORCINE) 30 MG/0.3 ML DISP.SYRIN SQ SCH (21:22)
[2018-06-28] MEDS: METOCLOPRAMIDE HCL INJECTION 10 MG/2 ML VIAL IVPUSH PRN ×3 (00:30→22:15)
[2018-06-28] MEDS: SODIUM CHLORIDE 1,000 ML IV SCH ×2 (05:40→16:20)
[2018-06-28 08:00] LABS: ALBUMIN 2.9 g/dl (3.4-5.0); BILIRUBIN,TOTAL 0.3 mg/dL (0.2-1); CALCIUM 8.1 mg/dL (8.5-10.1); CREATININE 6.4 mg/dL (0.55-1.3); POTASSIUM 4.4 mmol/L (3.5-5.1); TOT PROT 5.4 g/dl (6.4-8.2)
--- NOTE | 2018-06-28 08:18 | PN ---
Progress Note (short form) - Note Progress Note: RENAL pt is awake and alert comfortable had an uncontrolled bm when she spat does not have n/v Last Vital Signs Temp Pulse Resp BP Pulse Ox 97.9 F 60 20 149/75 99 06/28/18 06:00 06/28/18 06:00 06/28/18 06:00 06/28/18 06:00 06/27/18 21:00 lungs clear cvs s1s2 rr abd soft, not tender ext no edema' neuro a+ox3 CBC, BMP 06/27/18 07:40 06/28/18 06:35 Current Medications Generic Name Dose Route Start Last Admin Trade Name Freq PRN Reason Stop Dose Admin Acetaminophen 1,000 mg 06/26/18 20:55 06/26/18 21:29 Ofirmev Injection - IVPB 1,000 mg Q6H PRN Administration FEVER Enoxaparin Sodium 30 mg 06/27/18 20:00 06/27/18 21:22 Lovenox - SQ 30 mg DAILY QUEENIE Administration Metronidazole 500 mg in 100 mls @ 100 mls/hr 06/26/18 18:00 06/28/18 02:15 Flagyl 500mg Premixed Ivpb - IVPB 100 mls/hr Q8H-IV QUEENIE Administration Levofloxacin 250 mg in 50 mls @ 50 mls/hr 06/28/18 10:00 Levaquin 250 Mg Premixed Ivpb - IVPB Q2D@1000 QUEENIE Protocol Sodium Chloride 1,000 mls @ 125 mls/hr 06/27/18 16:15 06/28/18 05:40 Normal Saline - IV 125 mls/hr ASDIR QUEENIE Administration Metoclopramide HCl 10 mg 06/26/18 20:46 06/28/18 00:30 Reglan Injection - IVPUSH 10 mg Q6H PRN Administration NAUSEA AND/OR VOMITING Impression 1. KEON on ckd. Note her creat was 1.2 in 2017 2. HTN 3. diverticulitis 4. nausea Plan will keep monitoring for now may have acute interstitial nephritis from quinolones although no peripheral eosinophilia keep hydrated will dialyze if not improving, but clinically does not meet criteria for acute hd yet MV
[2018-06-28] MEDS: ENOXAPARIN NA (PORCINE) 30 MG/0.3 ML DISP.SYRIN SQ SCH (09:40)
[2018-06-28 11:12] LABS: HBSAG SCREEN Negative (Negative); HEP A AB, IGM Negative (Negative); HEP B CORE AB, TOT Negative (Negative)
--- NOTE | 2018-06-28 13:08 | PN ---
Progress Note (short form) - Note Progress Note: pressure in abdomen nausea+ anxious Vital Signs - 24 hr 06/27/18 06/27/18 06/27/18 14:30 18:00 21:00 Temperature 98.6 F 99.2 F Pulse Rate 67 82 Respiratory 18 18 18 Rate Blood Pressure 132/70 141/79 O2 Sat by Pulse 99 Oximetry (%) 06/28/18 06/28/18 06/28/18 00:58 06:00 09:00 Temperature 97.9 F Pulse Rate 63 60 Respiratory 20 20 20 Rate Blood Pressure 137/68 149/75 O2 Sat by Pulse 100 Oximetry (%) 06/28/18 13:37 Temperature 98.4 F Pulse Rate 67 Respiratory 18 Rate Blood Pressure 137/70 O2 Sat by Pulse Oximetry (%) Current Medications Generic Name Dose Route Start Last Admin Trade Name Freq PRN Reason Stop Dose Admin Acetaminophen 1,000 mg 06/26/18 20:55 06/26/18 21:29 Ofirmev Injection - IVPB 1,000 mg Q6H PRN Administration FEVER Enoxaparin Sodium 30 mg 06/27/18 20:00 06/28/18 09:40 Lovenox - SQ 30 mg DAILY [facility] Administration Metronidazole 500 mg in 100 mls @ 100 mls/hr 06/26/18 18:00 06/28/18 09:40 Flagyl 500mg Premixed Ivpb - IVPB 100 mls/hr Q8H-IV [facility] Administration Levofloxacin 250 mg in 50 mls @ 50 mls/hr 06/28/18 10:00 06/28/18 09:40 Levaquin 250 Mg Premixed Ivpb - IVPB 50 mls/hr Q2D@1000 [facility] Administration Protocol Sodium Chloride 1,000 mls @ 125 mls/hr 06/27/18 16:15 06/28/18 05:40 Normal Saline - IV 125 mls/hr ASDIR [facility] Administration Metoclopramide HCl 10 mg 06/26/18 20:46 06/28/18 10:29 Reglan Injection - IVPUSH 10 mg Q6H PRN Administration NAUSEA AND/OR VOMITING Laboratory Results - last 24 hr 06/27/18 06/27/18 06/27/18 07:40 07:40 18:10 Sodium Potassium Chloride Carbon Dioxide Anion Gap BUN Creatinine Est GFR (CKD-EPI)AfAm Est GFR (CKD-EPI)NonAf Random Glucose Calcium Total Bilirubin AST ALT Alkaline Phosphatase Total Protein Albumin PTH Intact 42 Urine Color Yellow Urine Appearance Clear Urine pH 5.5 Ur Specific [place] 1.004 L Urine Protein Negative Urine Glucose (UA) Negative Urine Ketones Negative Urine Blood 1+ H Urine Nitrite Negative Urine Bilirubin Negative Urine Urobilinogen 0.2 Ur Leukocyte Esterase Trace Urine WBC (Auto) 1.9 Urine RBC (Auto) 0.7 Urine Casts (Auto) 0.73 U Epithel Cells (Auto) 0.6 Urine Bacteria (Auto) 18.1 Ur Random Creatinine Ur Random Sodium Ur Random Potassium Ur Random Chloride Hep A IgM Ab Confirm Negative Hepatitis A Ab Total Positive H Hep Bs Antigen Negative Hep Bs Antibody Non reactive Hep B Core Total Ab Negative 06/27/18 06/28/18 18:10 06:35 Sodium 140 Potassium 4.4 Chloride 108 H Carbon Dioxide 21 Anion Gap 10 BUN 40 H Creatinine 6.4 H Est GFR (CKD-EPI)AfAm 7.52 Est GFR (CKD-EPI)NonAf 6.49 Random Glucose 110 H Calcium 8.1 L Total Bilirubin 0.3 AST 16 ALT 11 L Alkaline Phosphatase 74 Total Protein 5.4 L Albumin 2.9 L PTH Intact Urine Color Urine Appearance Urine pH Ur Specific [place] Urine Protein Urine Glucose (UA) Urine Ketones Urine Blood Urine Nitrite Urine Bilirubin Urine Urobilinogen Ur Leukocyte Esterase Urine WBC (Auto) Urine RBC (Auto) Urine Casts (Auto) U Epithel Cells (Auto) Urine Bacteria (Auto) Ur Random Creatinine 28.0 L Ur Random Sodium 35 L Ur Random Potassium 9.0 L Ur Random Chloride 28 L Hep A IgM Ab Confirm Hepatitis A Ab Total Hep Bs Antigen Hep Bs Antibody Hep B Core Total Ab S1 S2 RRR Lungs clear Abd- soft , pressure left quad not distended no edema PLAN Iv fluids IV antibiotics -- renal dose Renal eval noted GI eval noted monitor kidney functions Problem List - Problems (1) Acute renal failure Code(s): N17.9 - ACUTE KIDNEY FAILURE, UNSPECIFIED (2) Back pain Code(s): M54.9 - DORSALGIA, UNSPECIFIED Qualifiers: Back pain location: low back pain (3) Diverticulitis Code(s): K57.92 - DVTRCLI OF INTEST, PART UNSP, W/O PERF OR ABSCESS W/O BLEED Qualifiers: Diverticulitis site: large intestine Diverticulitis bleeding: without bleeding Diverticulitis complication: without perforation or abscess Qualified Code(s): K57.32 - Diverticulitis of large intestine without perforation or abscess without bleeding
[2018-06-28] MEDS: ACETAMINOPHEN 1000 MG/100 ML VIAL (NON FORMULARY) IVPB PRN (22:15)
[2018-06-29] MEDS: SODIUM CHLORIDE 1,000 ML IV SCH ×3 (02:37→23:53)
--- NOTE | 2018-06-29 08:59 | PN ---
Progress Note (short form) - Note Progress Note: RENAL pt is awake and alert comfortable having some retching at night mostly no difficulty urinating or breathing Last Vital Signs Temp Pulse Resp BP Pulse Ox 98.7 F 87 18 153/85 100 06/29/18 06:00 06/29/18 06:00 06/29/18 06:00 06/29/18 06:00 06/28/18 21:00 lungs clear cvs s1s2 rr no rub abd soft, not tender ext no edema' neuro a+ox3, no tremors, no asterixis CBC, BMP 06/27/18 07:40 06/28/18 06:35 Current Medications Generic Name Dose Route Start Last Admin Trade Name Freq PRN Reason Stop Dose Admin Acetaminophen 1,000 mg 06/26/18 20:55 06/28/18 22:15 Ofirmev Injection - IVPB 1,000 mg Q6H PRN Administration FEVER Enoxaparin Sodium 30 mg 06/27/18 20:00 06/28/18 09:40 Lovenox - SQ 30 mg DAILY [facility] Administration Metronidazole 500 mg in 100 mls @ 100 mls/hr 06/26/18 18:00 06/29/18 02:20 Flagyl 500mg Premixed Ivpb - IVPB 100 mls/hr Q8H-IV [facility] Administration Levofloxacin 250 mg in 50 mls @ 50 mls/hr 06/28/18 10:00 06/28/18 09:40 Levaquin 250 Mg Premixed Ivpb - IVPB 50 mls/hr Q2D@1000 [facility] Administration Protocol Sodium Chloride 1,000 mls @ 125 mls/hr 06/27/18 16:15 06/29/18 02:37 Normal Saline - IV 125 mls/hr ASDIR [facility] Administration Metoclopramide HCl 10 mg 06/26/18 20:46 06/28/18 22:15 Reglan Injection - IVPUSH 10 mg Q6H PRN Administration NAUSEA AND/OR VOMITING Impression 1. KEON on ckd. Note her creat was 1.2 in 2017 2. HTN 3. diverticulitis 4. nausea Plan will keep monitoring for now may have acute interstitial nephritis from quinolones although no peripheral eosinophilia keep hydrated No acute indication for hd yet but vomiting maybe a uremic symptom. Would recommend dialysis tomorrow if not improving dc levaquin MV
[2018-06-29] MEDS: ENOXAPARIN NA (PORCINE) 30 MG/0.3 ML DISP.SYRIN SQ SCH (09:20)
--- NOTE | 2018-06-29 10:38 | PN ---
Progress Note (short form) - Note Progress Note: no abd pain nausea+ feels better today Vital Signs - 24 hr 06/28/18 06/28/18 06/29/18 18:31 21:00 06:00 Temperature 97.6 F 98.7 F Pulse Rate 62 87 Respiratory 18 18 18 Rate Blood Pressure 146/80 153/85 O2 Sat by Pulse 100 Oximetry (%) 06/29/18 06/29/18 06/29/18 09:00 10:40 13:50 Temperature 98.2 F 98.1 F Pulse Rate 78 58 L Respiratory 20 20 18 Rate Blood Pressure 145/79 158/74 O2 Sat by Pulse 98 Oximetry (%) Current Medications Generic Name Dose Route Start Last Admin Trade Name Freq PRN Reason Stop Dose Admin Acetaminophen 1,000 mg 06/26/18 20:55 06/28/18 22:15 Ofirmev Injection - IVPB 1,000 mg Q6H PRN Administration FEVER Acetaminophen 650 mg 06/29/18 10:53 Tylenol - PO Q6H PRN PAIN LEVEL 6-10 Atorvastatin Calcium 10 mg 06/29/18 22:00 Lipitor - PO HS [facility] Enoxaparin Sodium 30 mg 06/27/18 20:00 06/29/18 09:20 Lovenox - SQ 30 mg DAILY [facility] Administration Metronidazole 500 mg in 100 mls @ 100 mls/hr 06/26/18 18:00 06/29/18 09:20 Flagyl 500mg Premixed Ivpb - IVPB 100 mls/hr Q8H-IV [facility] Administration Sodium Chloride 1,000 mls @ 125 mls/hr 06/27/18 16:15 06/29/18 02:37 Normal Saline - IV 125 mls/hr ASDIR [facility] Administration Metoclopramide HCl 10 mg 06/26/18 20:46 06/28/18 22:15 Reglan Injection - IVPUSH 10 mg Q6H PRN Administration NAUSEA AND/OR VOMITING Metoprolol Succinate 100 mg 06/29/18 10:45 06/29/18 11:26 Toprol Xl - PO 100 mg DAILY [facility] Administration S1 S2 RRR Lungs clear Abd- soft , pressure left quad not distended no edema PLAN Iv fluids IV antibiotics --dc Levaquin continue with Metronidazole GI eval noted monitor kidney functions Problem List - Problems (1) Acute renal failure Code(s): N17.9 - ACUTE KIDNEY FAILURE, UNSPECIFIED (2) Back pain Code(s): M54.9 - DORSALGIA, UNSPECIFIED Qualifiers: Back pain location: low back pain (3) Diverticulitis Code(s): K57.92 - DVTRCLI OF INTEST, PART UNSP, W/O PERF OR ABSCESS W/O BLEED Qualifiers: Diverticulitis site: large intestine Diverticulitis bleeding: without bleeding Diverticulitis complication: without perforation or abscess Qualified Code(s): K57.32 - Diverticulitis of large intestine without perforation or abscess without bleeding
[2018-06-29] MEDS: ACETAMINOPHEN 325 MG TABLET (FP) PO PRN (15:56)
[2018-06-29] MEDS: METOCLOPRAMIDE HCL INJECTION 10 MG/2 ML VIAL IVPUSH PRN (17:56)
[2018-06-29] MEDS: ATORVASTATIN CA 10 MG TABLET (FP) PO SCH (21:40)
[2018-06-30] MEDS: ACETAMINOPHEN 325 MG TABLET (FP) PO PRN ×2 (00:50→23:41)
[2018-06-30] MEDS: METOCLOPRAMIDE HCL INJECTION 10 MG/2 ML VIAL IVPUSH PRN ×2 (04:27→10:30)
[2018-06-30 06:21] LABS: BASO % 0.7 % (0-2.0); EOS % 0.8 % (0-4.5); HEMATOCRIT 30.6 % (32.4-45.2); HEMOGLOBIN 10.2 GM/dL (10.7-15.3); LYMPH % 12.9 % (8-40); MCH 30.9 pg (25.7-33.7); MCHC 33.5 g/dl (32.0-36.0); MEAN CELL VOLUME 92.2 fl (80-96); MEAN PLT VOLUME 9.9 fl (7.5-11.1); MONO % 8.6 % (3.8-10.2); PLATELET COUNT 249 K/MM3 (134-434); RBC 3.32 M/mm3 (3.60-5.2); RDW 13.1 % (11.6-15.6); WHITE BLOOD COUNT 8.8 K/mm3 (4.0-10.0)
[2018-06-30 06:58] LABS: CALCIUM 7.8 mg/dL (8.5-10.1)
[2018-06-30] MEDS: ENOXAPARIN NA (PORCINE) 30 MG/0.3 ML DISP.SYRIN SQ SCH (10:13)
[2018-06-30] MEDS: RANITIDINE HCL 150 MG TABLET (FP) PO SCH ×2 (12:04→21:25)
--- NOTE | 2018-06-30 13:23 | PN ---
Progress Note, Physician History of Present Illness: Pt seen and examined at bedside. She is able to hold food down. She denies shortness of breath. - Current Medication List Current Medications: Active Medications Acetaminophen (Ofirmev Injection -) 1,000 mg IVPB Q6H PRN PRN Reason: FEVER Last Admin: 06/28/18 22:15 Dose: 1,000 mg Acetaminophen (Tylenol -) 650 mg PO Q6H PRN PRN Reason: PAIN LEVEL 6-10 Last Admin: 06/30/18 00:50 Dose: 650 mg Atorvastatin Calcium (Lipitor -) 10 mg PO HS [facility] Last Admin: 06/29/18 21:40 Dose: 10 mg Enoxaparin Sodium (Lovenox -) 30 mg SQ DAILY [facility] Last Admin: 06/30/18 10:13 Dose: 30 mg Metronidazole (Flagyl 500mg Premixed Ivpb -) 500 mg in 100 mls @ 100 mls/hr IVPB Q8H-IV [facility] Last Admin: 06/30/18 10:07 Dose: 100 mls/hr Sodium Chloride (Normal Saline -) 1,000 mls @ 125 mls/hr IV ASDIR [facility] Last Admin: 06/29/18 23:53 Dose: 125 mls/hr Metoclopramide HCl (Reglan Injection -) 10 mg IVPUSH Q6H PRN PRN Reason: NAUSEA AND/OR VOMITING Last Admin: 06/30/18 10:30 Dose: 10 mg Metoprolol Succinate (Toprol Xl -) 100 mg PO DAILY [facility] Last Admin: 06/30/18 10:07 Dose: 100 mg Ranitidine HCl (Zantac -) 150 mg PO BID [facility] Last Admin: 06/30/18 12:04 Dose: 150 mg - Objective Vital Signs: Vital Signs Temperature 97.9 F 06/30/18 10:00 Pulse Rate 67 06/30/18 10:00 Respiratory Rate 18 06/30/18 10:00 Blood Pressure 149/71 06/30/18 10:00 O2 Sat by Pulse Oximetry (%) 98 06/29/18 21:00 Constitutional: Yes: Calm Eyes: Yes: Conjunctiva Clear HENT: Yes: Atraumatic Neck: Yes: Supple Cardiovascular: Yes: S1, S2 Respiratory: Yes: CTA Bilaterally Gastrointestinal: Yes: WNL Genitourinary: Yes: WNL Extremities: Yes: WNL Edema: No Neurological: Yes: Oriented Psychiatric: Yes: Oriented Labs: CBC, BMP 06/30/18 05:15 06/30/18 05:15 INR, PTT INR 1.23 (0.83-1.09) H 06/26/18 11:33 Problem List - Problems (1) Renal failure Code(s): N19 - UNSPECIFIED KIDNEY FAILURE Qualifiers: Renal failure chronicity: acute (2) Diverticulitis Code(s): K57.92 - DVTRCLI OF INTEST, PART UNSP, W/O PERF OR ABSCESS W/O BLEED Qualifiers: Diverticulitis site: large intestine Diverticulitis bleeding: without bleeding Diverticulitis complication: without perforation or abscess Qualified Code(s): K57.32 - Diverticulitis of large intestine without perforation or abscess without bleeding Assessment/Plan Current Medications Generic Name Dose Route Start Last Admin Trade Name Freq PRN Reason Stop Dose Admin Acetaminophen 1,000 mg 06/26/18 20:55 06/28/18 22:15 Ofirmev Injection - IVPB 1,000 mg Q6H PRN Administration FEVER Acetaminophen 650 mg 06/29/18 10:53 06/30/18 00:50 Tylenol - PO 650 mg Q6H PRN Administration PAIN LEVEL 6-10 Atorvastatin Calcium 10 mg 06/29/18 22:00 06/29/18 21:40 Lipitor - PO 10 mg HS [facility] Administration Enoxaparin Sodium 30 mg 06/27/18 20:00 06/30/18 10:13 Lovenox - SQ 30 mg DAILY [facility] Administration Metronidazole 500 mg in 100 mls @ 100 mls/hr 06/26/18 18:00 06/30/18 10:07 Flagyl 500mg Premixed Ivpb - IVPB 100 mls/hr Q8H-IV [facility] Administration Sodium Chloride 1,000 mls @ 125 mls/hr 06/27/18 16:15 06/29/18 23:53 Normal Saline - IV 125 mls/hr ASDIR [facility] Administration Metoclopramide HCl 10 mg 06/26/18 20:46 06/30/18 10:30 Reglan Injection - IVPUSH 10 mg Q6H PRN Administration NAUSEA AND/OR VOMITING Metoprolol Succinate 100 mg 06/29/18 10:45 06/30/18 10:07 Toprol Xl - PO 100 mg DAILY [facility] Administration Ranitidine HCl 150 mg 06/30/18 12:00 06/30/18 12:04 Zantac - PO 150 mg BID [facility] Administration Impression 1. KEON 2. HTN 3. diverticulitis 4. nausea Plan - change fluids to 1/2 ns and decrease rate - renal workup in progress - groundman starting to improved - no indication for HD - urine eos neg - repeat ua - keep lisinopril and thiazide on hold
--- NOTE | 2018-06-30 13:33 | PN ---
Progress Note (short form) - Note Progress Note: pt seen/ examined chart reviewed awake/ comfortable. +ve nausea today Vital Signs Temp 97.9 F 06/30/18 10:00 Pulse 67 06/30/18 10:00 Resp 18 06/30/18 10:00 BP 149/71 06/30/18 10:00 Pulse Ox 98 06/29/18 21:00 Intake & Output 06/29/18 06/30/18 06/30/18 23:59 11:59 23:59 Intake Total 50 1300 Balance 50 1300 Intake: IV 1200 Normal Saline - 1,000 ml 1200 @ 125 mls/hr IV ASDIR [facility] Rx#:[id number] IVPB 50 100 Other: Voiding Method Toilet Toilet # Unmeasured Voids Void 2 Bowel Movement No Active Medications Acetaminophen (Ofirmev Injection -) 1,000 mg IVPB Q6H PRN PRN Reason: FEVER Last Admin: 06/28/18 22:15 Dose: 1,000 mg Acetaminophen (Tylenol -) 650 mg PO Q6H PRN PRN Reason: PAIN LEVEL 6-10 Last Admin: 06/30/18 00:50 Dose: 650 mg Atorvastatin Calcium (Lipitor -) 10 mg PO HS [facility] Last Admin: 06/29/18 21:40 Dose: 10 mg Enoxaparin Sodium (Lovenox -) 30 mg SQ DAILY [facility] Last Admin: 06/30/18 10:13 Dose: 30 mg Metronidazole (Flagyl 500mg Premixed Ivpb -) 500 mg in 100 mls @ 100 mls/hr IVPB Q8H-IV [facility] Last Admin: 06/30/18 10:07 Dose: 100 mls/hr Sodium Chloride (1/2 Normal Saline) 1,000 mls @ 83 mls/hr IV ASDIR [facility] Metoclopramide HCl (Reglan Injection -) 10 mg IVPUSH Q6H PRN PRN Reason: NAUSEA AND/OR VOMITING Last Admin: 06/30/18 10:30 Dose: 10 mg Metoprolol Succinate (Toprol Xl -) 100 mg PO DAILY [facility] Last Admin: 06/30/18 10:07 Dose: 100 mg Ranitidine HCl (Zantac -) 150 mg PO BID [facility] Last Admin: 06/30/18 12:04 Dose: 150 mg CBC, BMP 06/30/18 05:15 06/30/18 05:15 Physical Exam. Awake/ comfortable S1 S2 RRR Lungs clear Abd- soft , not distended no edema PLAN Diverticulitis - worsening Iv fluids IV antibiotics --Agree with dc Levaquin due to arf worsening continue with Metronidazole. renal function worsening. Renal on case will follow discussed with pt and pts family who is at bedside. daily oob - chair Problem List - Problems (1) Diverticulitis Code(s): K57.92 - DVTRCLI OF INTEST, PART UNSP, W/O PERF OR ABSCESS W/O BLEED Qualifiers: Diverticulitis site: large intestine Diverticulitis bleeding: without bleeding Diverticulitis complication: without perforation or abscess Qualified Code(s): K57.32 - Diverticulitis of large intestine without perforation or abscess without bleeding (2) Hypertension Code(s): I10 - ESSENTIAL (PRIMARY) HYPERTENSION (3) Renal failure Code(s): N19 - UNSPECIFIED KIDNEY FAILURE Qualifiers: Renal failure chronicity: acute
[2018-06-30] MEDS: SODIUM CHLORIDE 0.45% 1,000 ML IV SCH (14:03)
[2018-06-30 19:16] LABS: URINE APPEARANCE CLEAR; URINE BILIRUBIN NEGATIVE (NEGATIVE); URINE COLOR YELLOW; URINE GLUCOSE (UA) NEGATIVE (NEGATIVE); URINE KETONE NEGATIVE (NEGATIVE); URINE LEUK ESTERASE NEGATIVE (NEGATIVE); URINE NITRITE NEGATIVE (NEGATIVE); URINE PROTEIN NEGATIVE (NEGATIVE); URINE UROBILINOGEN 0.2 mg/dL (0.2-1.0)
[2018-06-30] MEDS: ATORVASTATIN CA 10 MG TABLET (FP) PO SCH (21:25)
[2018-07-01] MEDS: ACETAMINOPHEN 325 MG TABLET (FP) PO PRN (06:21)
[2018-07-01 06:36] LABS: BASO % 0.5 % (0-2.0); EOS % 0.8 % (0-4.5); HEMATOCRIT 31.8 % (32.4-45.2); HEMOGLOBIN 10.7 GM/dL (10.7-15.3); LYMPH % 16.2 % (8-40); MCH 30.9 pg (25.7-33.7); MCHC 33.5 g/dl (32.0-36.0); MEAN CELL VOLUME 92.2 fl (80-96); MEAN PLT VOLUME 10.3 fl (7.5-11.1); MONO % 8.9 % (3.8-10.2); NEUT % 73.6 % (42.8-82.8); PLATELET COUNT 284 K/MM3 (134-434); RBC 3.45 M/mm3 (3.60-5.2); RDW 12.9 % (11.6-15.6); WHITE BLOOD COUNT 9.7 K/mm3 (4.0-10.0)
[2018-07-01 07:05] LABS: ALBUMIN 3.4 g/dl (3.4-5.0); BILIRUBIN,TOTAL 0.5 mg/dL (0.2-1); CALCIUM 8.3 mg/dL (8.5-10.1); CREATININE 5.5 mg/dL (0.55-1.3); POTASSIUM 4.4 mmol/L (3.5-5.1); TOT PROT 6.2 g/dl (6.4-8.2)
[2018-07-01 10:09] LABS: ANTIGLOMERULAR BASEMENT MEN.AB 3 units (0-20)
[2018-07-01] MEDS: ENOXAPARIN NA (PORCINE) 30 MG/0.3 ML DISP.SYRIN SQ SCH (10:20)
[2018-07-01] MEDS: RANITIDINE HCL 150 MG TABLET (FP) PO SCH ×2 (10:20→21:30)
[2018-07-01] MEDS: SODIUM CHLORIDE 0.45% 1,000 ML IV SCH (13:31)
--- NOTE | 2018-07-01 13:46 | PN ---
Progress Note (short form) - Note Progress Note: no abd pain nausea+ feels better today Vital Signs - 24 hr 06/30/18 06/30/18 06/30/18 14:52 15:00 18:26 Temperature 98.1 F Pulse Rate 62 57 L 77 Respiratory 18 18 18 Rate Blood Pressure 156/55 L 161/78 O2 Sat by Pulse Oximetry (%) 06/30/18 06/30/18 07/01/18 21:00 22:00 04:28 Temperature Pulse Rate 64 65 Respiratory 20 20 20 Rate Blood Pressure 160/79 173/72 H O2 Sat by Pulse 98 Oximetry (%) 07/01/18 07/01/18 07/01/18 06:00 10:00 10:26 Temperature 98.3 F 98.3 F Pulse Rate 67 63 Respiratory 20 18 Rate Blood Pressure 155/90 180/89 H O2 Sat by Pulse 96 Oximetry (%) Current Medications Generic Name Dose Route Start Last Admin Trade Name Freq PRN Reason Stop Dose Admin Acetaminophen 1,000 mg 06/26/18 20:55 06/28/18 22:15 Ofirmev Injection - IVPB 1,000 mg Q6H PRN Administration FEVER Acetaminophen 650 mg 06/29/18 10:53 07/01/18 06:21 Tylenol - PO 650 mg Q6H PRN Administration PAIN LEVEL 6-10 Atorvastatin Calcium 10 mg 06/29/18 22:00 06/30/18 21:25 Lipitor - PO 10 mg HS [facility] Administration Enoxaparin Sodium 30 mg 06/27/18 20:00 07/01/18 10:20 Lovenox - SQ 30 mg DAILY [facility] Administration Metronidazole 500 mg in 100 mls @ 100 mls/hr 06/26/18 18:00 07/01/18 10:20 Flagyl 500mg Premixed Ivpb - IVPB 100 mls/hr Q8H-IV [facility] Administration Sodium Chloride 1,000 mls @ 70 mls/hr 07/01/18 13:58 1/2 Normal Saline IV ASDIR [facility] Metoclopramide HCl 10 mg 06/26/18 20:46 06/30/18 10:30 Reglan Injection - IVPUSH 10 mg Q6H PRN Administration NAUSEA AND/OR VOMITING Metoprolol Succinate 100 mg 06/29/18 10:45 07/01/18 10:20 Toprol Xl - PO 100 mg DAILY [facility] Administration Ranitidine HCl 150 mg 06/30/18 12:00 07/01/18 10:20 Zantac - PO 150 mg BID [facility] Administration Laboratory Results - last 24 hr 06/27/18 06/28/18 06/30/18 07:40 06:35 18:30 WBC RBC Hgb Hct MCV MCH MCHC RDW Plt Count MPV Absolute Neuts (auto) Neutrophils % Lymphocytes % Monocytes % Eosinophils % Basophils % Nucleated RBC % Sodium Potassium Chloride Carbon Dioxide Anion Gap BUN Creatinine Est GFR (CKD-EPI)AfAm Est GFR (CKD-EPI)NonAf Random Glucose Calcium Total Bilirubin AST ALT Alkaline Phosphatase Total Protein Total Protein (PEP) 5.1 L Albumin Albumin (PEP) 2.6 L Globulin 2.5 Albumin/Globulin Ratio 1.0 Beta Globulins 0.7 Urine Color Yellow Urine Appearance Clear Urine pH 5.0 Ur Specific [place] 1.009 L Urine Protein Negative Urine Glucose (UA) Negative Urine Ketones Negative Urine Blood Negative Urine Nitrite Negative Urine Bilirubin Negative Urine Urobilinogen 0.2 Ur Leukocyte Esterase Negative MARTELL M-Bharat Not observed JACOBO Screen Negative Glomerular Base Memb Ab 3 07/01/18 07/01/18 06:00 06:00 WBC 9.7 RBC 3.45 L Hgb 10.7 Hct 31.8 L MCV 92.2 MCH 30.9 MCHC 33.5 RDW 12.9 Plt Count 284 MPV 10.3 Absolute Neuts (auto) 7.1 Neutrophils % 73.6 Lymphocytes % 16.2 D Monocytes % 8.9 Eosinophils % 0.8 Basophils % 0.5 Nucleated RBC % 0 Sodium 141 Potassium 4.4 Chloride 113 H Carbon Dioxide 19 L Anion Gap 10 BUN 44 H Creatinine 5.5 H Est GFR (CKD-EPI)AfAm 9.03 Est GFR (CKD-EPI)NonAf 7.79 Random Glucose 93 Calcium 8.3 L Total Bilirubin 0.5 AST 29 ALT 17 Alkaline Phosphatase 83 Total Protein 6.2 L Total Protein (PEP) Albumin 3.4 Albumin (PEP) Globulin Albumin/Globulin Ratio Beta Globulins Urine Color Urine Appearance Urine pH Ur Specific [place] Urine Protein Urine Glucose (UA) Urine Ketones Urine Blood Urine Nitrite Urine Bilirubin Urine Urobilinogen Ur Leukocyte Esterase MARTELL M-Bharat JACOBO Screen Glomerular Base Memb Ab S1 S2 RRR Lungs clear Abd- soft , pressure left quad not distended no edema PLAN Iv fluids IV antibiotics --dc Levaquin continue with Metronidazole GI eval noted monitor kidney functions-- clinically improving tolerating diet Problem List - Problems (1) Acute renal failure Code(s): N17.9 - ACUTE KIDNEY FAILURE, UNSPECIFIED (2) Back pain Code(s): M54.9 - DORSALGIA, UNSPECIFIED Qualifiers: Back pain location: low back pain (3) Diverticulitis Code(s): K57.92 - DVTRCLI OF INTEST, PART UNSP, W/O PERF OR ABSCESS W/O BLEED Qualifiers: Diverticulitis site: large intestine Diverticulitis bleeding: without bleeding Diverticulitis complication: without perforation or abscess Qualified Code(s): K57.32 - Diverticulitis of large intestine without perforation or abscess without bleeding
[2018-07-01] MEDS ORDERED: SODIUM CHLORIDE 0.45% 1,000 ML IV SCH (13:58)
--- NOTE | 2018-07-01 13:58 | PN ---
Progress Note, Physician History of Present Illness: Pt seen and examined at bedside. She is awake and alert. She denies shortness of breath. She feels that her appetite is improved. - Current Medication List Current Medications: Active Medications Acetaminophen (Ofirmev Injection -) 1,000 mg IVPB Q6H PRN PRN Reason: FEVER Last Admin: 06/28/18 22:15 Dose: 1,000 mg Acetaminophen (Tylenol -) 650 mg PO Q6H PRN PRN Reason: PAIN LEVEL 6-10 Last Admin: 07/01/18 06:21 Dose: 650 mg Atorvastatin Calcium (Lipitor -) 10 mg PO HS [facility] Last Admin: 06/30/18 21:25 Dose: 10 mg Enoxaparin Sodium (Lovenox -) 30 mg SQ DAILY [facility] Last Admin: 07/01/18 10:20 Dose: 30 mg Metronidazole (Flagyl 500mg Premixed Ivpb -) 500 mg in 100 mls @ 100 mls/hr IVPB Q8H-IV [facility] Last Admin: 07/01/18 10:20 Dose: 100 mls/hr Sodium Chloride (1/2 Normal Saline) 1,000 mls @ 83 mls/hr IV ASDIR [facility] Last Admin: 07/01/18 13:31 Dose: 83 mls/hr Metoclopramide HCl (Reglan Injection -) 10 mg IVPUSH Q6H PRN PRN Reason: NAUSEA AND/OR VOMITING Last Admin: 06/30/18 10:30 Dose: 10 mg Metoprolol Succinate (Toprol Xl -) 100 mg PO DAILY [facility] Last Admin: 07/01/18 10:20 Dose: 100 mg Ranitidine HCl (Zantac -) 150 mg PO BID [facility] Last Admin: 07/01/18 10:20 Dose: 150 mg - Objective Vital Signs: Vital Signs Temperature 98.3 F 07/01/18 10:26 Pulse Rate 63 07/01/18 10:26 Respiratory Rate 18 07/01/18 10:26 Blood Pressure 180/89 H 07/01/18 10:26 O2 Sat by Pulse Oximetry (%) 96 07/01/18 10:00 Constitutional: Yes: Calm Eyes: Yes: Conjunctiva Clear HENT: Yes: Atraumatic Neck: Yes: Supple Cardiovascular: Yes: S1, S2 Respiratory: Yes: CTA Bilaterally Gastrointestinal: Yes: Soft Genitourinary: Yes: WNL Musculoskeletal: Yes: WNL Edema: No Neurological: Yes: Oriented Psychiatric: Yes: Oriented Labs: CBC, BMP 07/01/18 06:00 07/01/18 06:00 INR, PTT INR 1.23 (0.83-1.09) H 06/26/18 11:33 Problem List - Problems (1) Renal failure Code(s): N19 - UNSPECIFIED KIDNEY FAILURE Qualifiers: Renal failure chronicity: acute (2) Diverticulitis Code(s): K57.92 - DVTRCLI OF INTEST, PART UNSP, W/O PERF OR ABSCESS W/O BLEED Qualifiers: Diverticulitis site: large intestine Diverticulitis bleeding: without bleeding Diverticulitis complication: without perforation or abscess Qualified Code(s): K57.32 - Diverticulitis of large intestine without perforation or abscess without bleeding Assessment/Plan Current Medications Generic Name Dose Route Start Last Admin Trade Name Freq PRN Reason Stop Dose Admin Acetaminophen 1,000 mg 06/26/18 20:55 06/28/18 22:15 Ofirmev Injection - IVPB 1,000 mg Q6H PRN Administration FEVER Acetaminophen 650 mg 06/29/18 10:53 07/01/18 06:21 Tylenol - PO 650 mg Q6H PRN Administration PAIN LEVEL 6-10 Atorvastatin Calcium 10 mg 06/29/18 22:00 06/30/18 21:25 Lipitor - PO 10 mg HS [facility] Administration Enoxaparin Sodium 30 mg 06/27/18 20:00 07/01/18 10:20 Lovenox - SQ 30 mg DAILY [facility] Administration Metronidazole 500 mg in 100 mls @ 100 mls/hr 06/26/18 18:00 07/01/18 10:20 Flagyl 500mg Premixed Ivpb - IVPB 100 mls/hr Q8H-IV [facility] Administration Sodium Chloride 1,000 mls @ 83 mls/hr 06/30/18 13:30 07/01/18 13:31 1/2 Normal Saline IV 83 mls/hr ASDIR [facility] Administration Metoclopramide HCl 10 mg 06/26/18 20:46 06/30/18 10:30 Reglan Injection - IVPUSH 10 mg Q6H PRN Administration NAUSEA AND/OR VOMITING Metoprolol Succinate 100 mg 06/29/18 10:45 07/01/18 10:20 Toprol Xl - PO 100 mg DAILY [facility] Administration Ranitidine HCl 150 mg 06/30/18 12:00 07/01/18 10:20 Zantac - PO 150 mg BID [facility] Administration Impression 1. KEON 2. HTN 3. diverticulitis 4. nausea Plan - renal function is improving - cont fluids - repeat labs in am - no indication for HD - keep lisinopril and thiazide on hold - repeat bp after metoprolol - add hydralazine if bp still elevated - decrease fluid as her po intake is improved
[2018-07-01 14:12] LABS: ATYPICAL pANCA <1:20 titer (Neg:<1:20); C-ANCA <1:20 titer (Neg:<1:20); P-ANCA <1:20 titer (Neg:<1:20)
--- NOTE | 2018-07-01 20:49 | PN.GI ---
GI Progress Note Subjective: GI Note: Pian free and moving more solid BMs. Renal function finally improving and with this her nausea has resolved. Discussed the need for colonoscopy in 2 months - Objective Vital Signs: Vital Signs Temperature 98.3 F 07/01/18 18:00 Pulse Rate 61 07/01/18 18:00 Respiratory Rate 20 07/01/18 18:00 Blood Pressure 155/83 07/01/18 18:00 O2 Sat by Pulse Oximetry (%) 96 07/01/18 10:00 Laboratory Tests 06/28/18 06/30/18 07/01/18 06:35 05: 06:00 BUN 40 H 40 H 44 H Creatinine 6.4 H 6.0 H 5.5 H Constitutional: No Distress ...Auscultate: Yes: Normoactive Bowel Sounds ...Palpate: Yes: Soft, Other (nontender) Labs: CBC, BMP 07/01/18 06:00 07/01/18 06:00 INR, PTT INR 1.23 (0.83-1.09) H 06/26/18 11:33 Assessment/Plan Impression Left colon diverticulitis resolved Renal failure resolving ? Cipro related injury Plan: Stop reglan Renal diet Problem List - Problems (1) Diverticulitis Code(s): K57.92 - DVTRCLI OF INTEST, PART UNSP, W/O PERF OR ABSCESS W/O BLEED Qualifiers: Diverticulitis site: large intestine Diverticulitis bleeding: without bleeding Diverticulitis complication: without perforation or abscess Qualified Code(s): K57.32 - Diverticulitis of large intestine without perforation or abscess without bleeding (2) Renal failure Code(s): N19 - UNSPECIFIED KIDNEY FAILURE Qualifiers: Renal failure chronicity: acute (3) Hypertension Code(s): I10 - ESSENTIAL (PRIMARY) HYPERTENSION (4) Hyperlipemia Code(s): E78.5 - HYPERLIPIDEMIA, UNSPECIFIED (5) Family history of gastric cancer Code(s): Z80.0 - FAMILY HISTORY OF MALIGNANT NEOPLASM OF DIGESTIVE ORGANS (6) Back pain Code(s): M54.9 - DORSALGIA, UNSPECIFIED Qualifiers: Back pain location: low back pain (7) Hypercalcemia Code(s): E83.52 - HYPERCALCEMIA
[2018-07-01] MEDS: amLODIPine BESYLATE 10 MG TABLET (FP) PO SCH (21:30)
[2018-07-01] MEDS: ATORVASTATIN CA 10 MG TABLET (FP) PO SCH (21:30)
[2018-07-02] MEDS: ACETAMINOPHEN 325 MG TABLET (FP) PO PRN (06:12)
[2018-07-02 07:45] LABS: CALCIUM 7.8 mg/dL (8.5-10.1); CREATININE 4.6 mg/dL (0.55-1.3); POTASSIUM 3.8 mmol/L (3.5-5.1)
[2018-07-02] MEDS: RANITIDINE HCL 150 MG TABLET (FP) PO SCH ×2 (10:29→22:21)
[2018-07-02] MEDS: ENOXAPARIN NA (PORCINE) 30 MG/0.3 ML DISP.SYRIN SQ SCH (10:29)
[2018-07-02] MEDS: amLODIPine BESYLATE 10 MG TABLET (FP) PO SCH (10:29)
--- NOTE | 2018-07-02 12:03 | PN ---
Progress Note, Physician History of Present Illness: Pt seen and examined at bedside. She is awake and alert. She denies shortness of breath. SHe says she has appetite and is eating well. She denies diarrhea. - Current Medication List Current Medications: Active Medications Acetaminophen (Tylenol -) 650 mg PO Q6H PRN PRN Reason: PAIN LEVEL 6-10 Last Admin: 07/02/18 06:12 Dose: 650 mg Amlodipine Besylate (Norvasc -) 10 mg PO DAILY [facility] Last Admin: 07/02/18 10:29 Dose: 10 mg Atorvastatin Calcium (Lipitor -) 10 mg PO HS [facility] Last Admin: 07/01/18 21:30 Dose: 10 mg Enoxaparin Sodium (Lovenox -) 30 mg SQ DAILY [facility] Last Admin: 07/02/18 10:29 Dose: 30 mg Metronidazole (Flagyl 500mg Premixed Ivpb -) 500 mg in 100 mls @ 100 mls/hr IVPB Q8H-IV [facility] Last Admin: 07/02/18 10:29 Dose: 100 mls/hr Sodium Chloride (1/2 Normal Saline) 1,000 mls @ 70 mls/hr IV ASDIR [facility] Last Admin: 07/01/18 14:21 Dose: 70 mls/hr Metoprolol Succinate (Toprol Xl -) 100 mg PO DAILY [facility] Last Admin: 07/02/18 10:29 Dose: 100 mg Ranitidine HCl (Zantac -) 150 mg PO BID [facility] Last Admin: 07/02/18 10:29 Dose: 150 mg - Objective Vital Signs: Vital Signs Temperature 98.4 F 07/02/18 10:00 Pulse Rate 65 07/02/18 10:00 Respiratory Rate 18 07/02/18 10:00 Blood Pressure 141/65 07/02/18 10:00 O2 Sat by Pulse Oximetry (%) 96 07/01/18 21:00 Constitutional: Yes: Calm Eyes: Yes: Conjunctiva Clear HENT: Yes: Atraumatic Neck: Yes: Supple Cardiovascular: Yes: S1, S2 Respiratory: Yes: CTA Bilaterally Gastrointestinal: Yes: Soft ...Rectal Exam: Yes: WNL Genitourinary: Yes: WNL Musculoskeletal: Yes: WNL Extremities: Yes: WNL Edema: No Neurological: Yes: Oriented Psychiatric: Yes: Oriented Labs: CBC, BMP 07/01/18 06:00 07/02/18 06:30 INR, PTT INR 1.23 (0.83-1.09) H 06/26/18 11:33 Problem List - Problems (1) Renal failure Code(s): N19 - UNSPECIFIED KIDNEY FAILURE Qualifiers: Renal failure chronicity: acute (2) Diverticulitis Code(s): K57.92 - DVTRCLI OF INTEST, PART UNSP, W/O PERF OR ABSCESS W/O BLEED Qualifiers: Diverticulitis site: large intestine Diverticulitis bleeding: without bleeding Diverticulitis complication: without perforation or abscess Qualified Code(s): K57.32 - Diverticulitis of large intestine without perforation or abscess without bleeding Assessment/Plan Current Medications Generic Name Dose Route Start Last Admin Trade Name Freq PRN Reason Stop Dose Admin Acetaminophen 650 mg 06/29/18 10:53 07/02/18 06:12 Tylenol - PO 650 mg Q6H PRN Administration PAIN LEVEL 6-10 Amlodipine Besylate 10 mg 07/01/18 21:00 07/02/18 10:29 Norvasc - PO 10 mg DAILY [facility] Administration Atorvastatin Calcium 10 mg 06/29/18 22:00 07/01/18 21:30 Lipitor - PO 10 mg HS [facility] Administration Enoxaparin Sodium 30 mg 06/27/18 20:00 07/02/18 10:29 Lovenox - SQ 30 mg DAILY [facility] Administration Metronidazole 500 mg in 100 mls @ 100 mls/hr 06/26/18 18:00 07/02/18 10:29 Flagyl 500mg Premixed Ivpb - IVPB 100 mls/hr Q8H-IV [facility] Administration Sodium Chloride 1,000 mls @ 70 mls/hr 07/01/18 13:58 07/01/18 14:21 1/2 Normal Saline IV 70 mls/hr ASDIR [facility] Administration Metoprolol Succinate 100 mg 06/29/18 10:45 07/02/18 10:29 Toprol Xl - PO 100 mg DAILY [facility] Administration Ranitidine HCl 150 mg 06/30/18 12:00 07/02/18 10:29 Zantac - PO 150 mg BID [facility] Administration Impression 1. KEON 2. HTN 3. diverticulitis 4. nausea Plan - renal function continues to improve - will decrease fluids further - repeat labs in am - keep lisinopril and thiazide on hold - monitor bp - add hydralazine if bp still elevated
--- NOTE | 2018-07-02 12:40 | PN ---
Progress Note (short form) - Note Progress Note: had headache today no abd pain feels better today Vital Signs - 24 hr 07/01/18 07/01/18 07/01/18 14:56 18:00 21:00 Temperature 97.7 F 98.3 F Pulse Rate 67 61 Respiratory 18 20 20 Rate Blood Pressure 158/88 155/83 O2 Sat by Pulse 96 Oximetry (%) 07/01/18 07/02/18 07/02/18 22:00 05:49 10:00 Temperature 98.0 F 98.4 F Pulse Rate 75 73 65 Respiratory 20 20 18 Rate Blood Pressure 142/62 133/73 141/65 O2 Sat by Pulse 94 L Oximetry (%) Current Medications Generic Name Dose Route Start Last Admin Trade Name Freq PRN Reason Stop Dose Admin Acetaminophen 650 mg 06/29/18 10:53 07/02/18 06:12 Tylenol - PO 650 mg Q6H PRN Administration PAIN LEVEL 6-10 Acetaminophen/Butalbital/Caffeine 1 tablet 07/02/18 13:20 Fioricet - PO Q6H PRN [facility]ACHE Amlodipine Besylate 10 mg 07/01/18 21:00 07/02/18 10:29 Norvasc - PO 10 mg DAILY [facility] Administration Atorvastatin Calcium 10 mg 06/29/18 22:00 07/01/18 21:30 Lipitor - PO 10 mg HS [facility] Administration Enoxaparin Sodium 30 mg 06/27/18 20:00 07/02/18 10:29 Lovenox - SQ 30 mg DAILY [facility] Administration Hydralazine HCl 10 mg 07/02/18 14:00 Apresoline - PO TID [facility] Metronidazole 500 mg in 100 mls @ 100 mls/hr 06/26/18 18:00 07/02/18 10:29 Flagyl 500mg Premixed Ivpb - IVPB 100 mls/hr Q8H-IV [facility] Administration Sodium Chloride 1,000 mls @ 60 mls/hr 07/02/18 12:03 1/2 Normal Saline IV ASDIR [facility] Metoprolol Succinate 100 mg 06/29/18 10:45 07/02/18 10:29 Toprol Xl - PO 100 mg DAILY [facility] Administration Ranitidine HCl 150 mg 06/30/18 12:00 07/02/18 10:29 Zantac - PO 150 mg BID [facility] Administration Laboratory Results - last 24 hr 06/28/18 07/02/18 06:35 06:30 Sodium 144 Potassium 3.8 Chloride 113 H Carbon Dioxide 21 Anion Gap 10 BUN 43 H Creatinine 4.6 H Est GFR (CKD-EPI)AfAm 11.21 Est GFR (CKD-EPI)NonAf 9.67 Random Glucose 104 Calcium 7.8 L c-ANCA <1:20 Proteinase 3 (PR3) <3.5 p-ANCA <1:20 Atypical p-ANCA <1:20 Myeloperoxidase Ab <9.0 S1 S2 RRR Lungs clear Abd- soft , pressure left quad not distended no edema PLAN Iv fluids-- decreased add Hydralazine for better BP control pt admits to difficluty sleeping-- may give Melatonin PRN IV antibiotics --dc Levaquin continue with Metronidazole GI eval noted monitor kidney functions-- clinically improving tolerating diet head CT negative Problem List - Problems (1) Acute renal failure Code(s): N17.9 - ACUTE KIDNEY FAILURE, UNSPECIFIED (2) Back pain Code(s): M54.9 - DORSALGIA, UNSPECIFIED Qualifiers: Back pain location: low back pain (3) Diverticulitis Code(s): K57.92 - DVTRCLI OF INTEST, PART UNSP, W/O PERF OR ABSCESS W/O BLEED Qualifiers: Diverticulitis site: large intestine Diverticulitis bleeding: without bleeding Diverticulitis complication: without perforation or abscess Qualified Code(s): K57.32 - Diverticulitis of large intestine without perforation or abscess without bleeding
[2018-07-02] MEDS: hydrALAZINE HCL 10 MG TABLET PO SCH ×2 (14:21→22:21)
[2018-07-02] MEDS: SODIUM CHLORIDE 0.45% 1,000 ML IV SCH (14:21)
[2018-07-02] MEDS: ACETAMINOPHEN/CAFFEINE/BUTALBITAL 1 TAB PO PRN (14:22)
[2018-07-02] MEDS ORDERED: INSULIN (NOVOLOG MIX 70/30) 100 UNITS/ML MDV SQ ONE (17:51)
[2018-07-02] MEDS ORDERED: INSULIN (NOVOLOG) ASPART 100 UNITS/ML 10ML VIAL ONE (17:51)
[2018-07-02] MEDS ORDERED: MELATONIN 5 MG TABLETS PO PRN (22:00)
[2018-07-02] MEDS: ATORVASTATIN CA 10 MG TABLET (FP) PO SCH (22:21)
[2018-07-03] MEDS: hydrALAZINE HCL 10 MG TABLET PO SCH (06:22)
[2018-07-03] MEDS: ACETAMINOPHEN/CAFFEINE/BUTALBITAL 1 TAB PO PRN (06:24)
[2018-07-03] MEDS: SODIUM CHLORIDE 0.45% 1,000 ML IV SCH ×3 (08:07→16:52)
[2018-07-03 08:33] LABS: CALCIUM 7.8 mg/dL (8.5-10.1); CREATININE 3.4 mg/dL (0.55-1.3); POTASSIUM 3.2 mmol/L (3.5-5.1)
[2018-07-03] MEDS: ENOXAPARIN NA (PORCINE) 30 MG/0.3 ML DISP.SYRIN SQ SCH (10:27)
[2018-07-03] MEDS: amLODIPine BESYLATE 10 MG TABLET (FP) PO SCH (10:27)
[2018-07-03] MEDS: RANITIDINE HCL 150 MG TABLET (FP) PO SCH ×2 (10:27→22:03)
--- NOTE | 2018-07-03 11:16 | PN ---
Progress Note (short form) - Note Progress Note: feeling better had a difficult time sleeping due to hospital environment Vital Signs - 24 hr 07/02/18 07/02/18 07/02/18 15:25 18:00 21:00 Temperature 98.3 F 98.0 F Pulse Rate 67 65 Respiratory 20 20 Rate Blood Pressure 143/68 144/77 O2 Sat by Pulse 94 L Oximetry (%) 07/02/18 07/03/18 07/03/18 22:05 01:58 06:01 Temperature 98.0 F 98.1 F 98.1 F Pulse Rate 71 70 68 Respiratory 20 20 20 Rate Blood Pressure 125/61 145/71 145/71 O2 Sat by Pulse Oximetry (%) 07/03/18 09:46 Temperature 98.5 F Pulse Rate 68 Respiratory 20 Rate Blood Pressure 140/72 O2 Sat by Pulse Oximetry (%) Current Medications Generic Name Dose Route Start Last Admin Trade Name Freq PRN Reason Stop Dose Admin Acetaminophen 650 mg 06/29/18 10:53 07/02/18 06:12 Tylenol - PO 650 mg Q6H PRN Administration PAIN LEVEL 6-10 Acetaminophen/Butalbital/Caffeine 1 tablet 07/02/18 13:20 07/03/18 06:24 Fioricet - PO 1 tablet Q6H PRN Administration HEADACHE Amlodipine Besylate 10 mg 07/01/18 21:00 07/03/18 10:27 Norvasc - PO 10 mg DAILY [facility] Administration Atorvastatin Calcium 10 mg 06/29/18 22:00 07/02/18 22:21 Lipitor - PO 10 mg HS [facility] Administration Enoxaparin Sodium 30 mg 06/27/18 20:00 07/03/18 10:27 Lovenox - SQ 30 mg DAILY [facility] Administration Hydralazine HCl 25 mg 07/03/18 14:00 Apresoline - PO TID [facility] Metronidazole 500 mg in 100 mls @ 100 mls/hr 06/26/18 18:00 07/03/18 10:27 Flagyl 500mg Premixed Ivpb - IVPB 100 mls/hr Q8H-IV [facility] Administration Sodium Chloride 1,000 mls @ 60 mls/hr 07/02/18 12:03 07/03/18 08:07 1/2 Normal Saline IV 60 mls/hr ASDIR [facility] Administration Melatonin 5 mg 07/02/18 22:00 Melatonin PO HS PRN [facility]OMN[facility] Metoprolol Succinate 100 mg 06/29/18 10:45 07/03/18 10:27 Toprol Xl - PO 100 mg DAILY [facility] Administration Ranitidine HCl 150 mg 06/30/18 12:00 07/03/18 10:27 Zantac - PO 150 mg BID [facility] Administration Laboratory Results - last 24 hr 07/03/18 07:00 Sodium 142 Potassium 3.2 L Chloride 109 H Carbon Dioxide 21 Anion Gap 12 BUN 38 H Creatinine 3.4 H Est GFR (CKD-EPI)AfAm 16.15 Est GFR (CKD-EPI)NonAf 13.93 Random Glucose 99 Calcium 7.8 L S1 S2 RRR Lungs clear Abd- soft , pressure left quad not distended no edema PLAN Iv fluids-- decreased increase Hydralazine for better BP control IV antibiotics --dc Levaquin continue with Metronidazole GI eval noted monitor kidney functions-- clinically improving tolerating diet head CT negative renal function better--dc planning per Renal if ok for tomorrow or Saturday will need close monitoring of renal function after discharge-- she will need to follow up with Renal and PMD Problem List - Problems (1) Acute renal failure Code(s): N17.9 - ACUTE KIDNEY FAILURE, UNSPECIFIED (2) Back pain Code(s): M54.9 - DORSALGIA, UNSPECIFIED Qualifiers: Back pain location: low back pain (3) Diverticulitis Code(s): K57.92 - DVTRCLI OF INTEST, PART UNSP, W/O PERF OR ABSCESS W/O BLEED Qualifiers: Diverticulitis site: large intestine Diverticulitis bleeding: without bleeding Diverticulitis complication: without perforation or abscess Qualified Code(s): K57.32 - Diverticulitis of large intestine without perforation or abscess without bleeding
[2018-07-03] MEDS ORDERED: POTASSIUM CHLORIDE TABS 20 MEQ TABLET.ER (FP) PO ONE ×2 (11:45→22:00)
[2018-07-03] MEDS: hydrALAZINE HCL 25 MG TABLET (FP) PO SCH ×2 (14:10→22:03)
--- NOTE | 2018-07-03 16:43 | PN ---
Progress Note, Physician History of Present Illness: Pt seen and examined at bedside. She is awake and alert. She denies shortness of breath. - Current Medication List Current Medications: Active Medications Acetaminophen (Tylenol -) 650 mg PO Q6H PRN PRN Reason: PAIN LEVEL 6-10 Last Admin: 07/02/18 06:12 Dose: 650 mg Acetaminophen/Butalbital/Caffeine (Fioricet -) 1 tablet PO Q6H PRN PRN Reason: HEADACHE Last Admin: 07/03/18 06:24 Dose: 1 tablet Amlodipine Besylate (Norvasc -) 10 mg PO DAILY [facility] Last Admin: 07/03/18 10:27 Dose: 10 mg Atorvastatin Calcium (Lipitor -) 10 mg PO HS [facility] Last Admin: 07/02/18 22:21 Dose: 10 mg Enoxaparin Sodium (Lovenox -) 30 mg SQ DAILY [facility] Last Admin: 07/03/18 10:27 Dose: 30 mg Hydralazine HCl (Apresoline -) 25 mg PO TID [facility] Last Admin: 07/03/18 14:10 Dose: 25 mg Metronidazole (Flagyl 500mg Premixed Ivpb -) 500 mg in 100 mls @ 100 mls/hr IVPB Q8H-IV [facility] Last Admin: 07/03/18 10:27 Dose: 100 mls/hr Sodium Chloride (1/2 Normal Saline) 1,000 mls @ 60 mls/hr IV ASDIR [facility] Last Admin: 07/03/18 14:10 Dose: Not Given Melatonin (Melatonin) 5 mg PO HS PRN PRN Reason: INSOMNIA Metoprolol Succinate (Toprol Xl -) 100 mg PO DAILY [facility] Last Admin: 07/03/18 10:27 Dose: 100 mg Ranitidine HCl (Zantac -) 150 mg PO BID [facility] Last Admin: 07/03/18 10:27 Dose: 150 mg - Objective Vital Signs: Vital Signs Temperature 98.5 F 07/03/18 14:45 Pulse Rate 68 07/03/18 14:45 Respiratory Rate 20 07/03/18 14:45 Blood Pressure 131/76 07/03/18 14:45 O2 Sat by Pulse Oximetry (%) 98 07/03/18 09:00 Constitutional: Yes: Calm Eyes: Yes: Conjunctiva Clear HENT: Yes: Atraumatic Neck: Yes: Supple Cardiovascular: Yes: S1, S2 Respiratory: Yes: CTA Bilaterally Gastrointestinal: Yes: Soft Genitourinary: Yes: WNL Musculoskeletal: Yes: WNL Edema: No Neurological: Yes: Oriented Psychiatric: Yes: Oriented Labs: CBC, BMP 07/01/18 06:00 07/03/18 07:00 INR, PTT INR 1.23 (0.83-1.09) H 06/26/18 11:33 Problem List - Problems (1) Renal failure Code(s): N19 - UNSPECIFIED KIDNEY FAILURE Qualifiers: Renal failure chronicity: acute (2) Diverticulitis Code(s): K57.92 - DVTRCLI OF INTEST, PART UNSP, W/O PERF OR ABSCESS W/O BLEED Qualifiers: Diverticulitis site: large intestine Diverticulitis bleeding: without bleeding Diverticulitis complication: without perforation or abscess Qualified Code(s): K57.32 - Diverticulitis of large intestine without perforation or abscess without bleeding Assessment/Plan Current Medications Generic Name Dose Route Start Last Admin Trade Name Freq PRN Reason Stop Dose Admin Acetaminophen 650 mg 06/29/18 10:53 07/02/18 06:12 Tylenol - PO 650 mg Q6H PRN Administration PAIN LEVEL 6-10 Acetaminophen/Butalbital/Caffeine 1 tablet 07/02/18 13:20 07/03/18 06:24 Fioricet - PO 1 tablet Q6H PRN Administration HEADACHE Amlodipine Besylate 10 mg 07/01/18 21:00 07/03/18 10:27 Norvasc - PO 10 mg DAILY [facility] Administration Atorvastatin Calcium 10 mg 06/29/18 22:00 07/02/18 22:21 Lipitor - PO 10 mg HS [facility] Administration Enoxaparin Sodium 30 mg 06/27/18 20:00 07/03/18 10:27 Lovenox - SQ 30 mg DAILY [facility] Administration Hydralazine HCl 25 mg 07/03/18 14:00 07/03/18 14:10 Apresoline - PO 25 mg TID [facility] Administration Metronidazole 500 mg in 100 mls @ 100 mls/hr 06/26/18 18:00 07/03/18 10:27 Flagyl 500mg Premixed Ivpb - IVPB 100 mls/hr Q8H-IV [facility] Administration Sodium Chloride 1,000 mls @ 60 mls/hr 07/02/18 12:03 07/03/18 14:10 1/2 Normal Saline IV Not Given ASDIR [facility] Melatonin 5 mg 07/02/18 22:00 Melatonin PO HS PRN INSOMN[facility] Metoprolol Succinate 100 mg 06/29/18 10:45 07/03/18 10:27 Toprol Xl - PO 100 mg DAILY [facility] Administration Ranitidine HCl 150 mg 06/30/18 12:00 07/03/18 10:27 Zantac - PO 150 mg BID [facility] Administration Impression 1. KEON 2. HTN 3. diverticulitis 4. nausea 5. hypokalemia Plan - replace potassium - decrease fluids - keep lisinopril and thiazide on hold - monitor bp
[2018-07-03] MEDS: ATORVASTATIN CA 10 MG TABLET (FP) PO SCH (22:03)
--- NOTE | 2018-07-03 22:58 | PN.GI ---
GI Progress Note Subjective: GI NOte: Pain free. Tolerating solids. Having solid BMs. Only on Flagyl. Renal function improving nicely - Objective Vital Signs: Vital Signs Temperature 98.2 F 07/03/18 22:05 Pulse Rate 69 07/03/18 22:05 Respiratory Rate 20 07/03/18 22:05 Blood Pressure 131/67 07/03/18 22:05 O2 Sat by Pulse Oximetry (%) 98 07/03/18 21:00 Laboratory Tests 06/28/18 06/30/18 07/01/18 06:35 05: 06:00 WBC 8.8 Hgb 10.2 L BUN 40 H Creatinine 6.4 H 5.5 H 07/01/18 07/02/18 07/03/18 06:00 06:30 07:00 WBC 9.7 Hgb 10.7 BUN 38 H Creatinine 4.6 H 3.4 H Constitutional: No Distress ...Auscultate: Yes: Normoactive Bowel Sounds ...Palpate: Yes: Soft, Other (nontender) Labs: CBC, BMP 07/01/18 06:00 07/03/18 07:00 INR, PTT INR 1.23 (0.83-1.09) H 06/26/18 11:33 Assessment/Plan Impression Left colon diverticulitis resolved Renal failure resolving Plan: No GI objections when renally stable Followup in my office Advised Miralax until then Problem List - Problems (1) Diverticulitis Code(s): K57.92 - DVTRCLI OF INTEST, PART UNSP, W/O PERF OR ABSCESS W/O BLEED Qualifiers: Diverticulitis site: large intestine Diverticulitis bleeding: without bleeding Diverticulitis complication: without perforation or abscess Qualified Code(s): K57.32 - Diverticulitis of large intestine without perforation or abscess without bleeding (2) Renal failure Code(s): N19 - UNSPECIFIED KIDNEY FAILURE Qualifiers: Renal failure chronicity: acute (3) Hypertension Code(s): I10 - ESSENTIAL (PRIMARY) HYPERTENSION (4) Hyperlipemia Code(s): E78.5 - HYPERLIPIDEMIA, UNSPECIFIED (5) Family history of gastric cancer Code(s): Z80.0 - FAMILY HISTORY OF MALIGNANT NEOPLASM OF DIGESTIVE ORGANS (6) Back pain Code(s): M54.9 - DORSALGIA, UNSPECIFIED Qualifiers: Back pain location: low back pain (7) Hypercalcemia Code(s): E83.52 - HYPERCALCEMIA
[2018-07-04] MEDS: hydrALAZINE HCL 25 MG TABLET (FP) PO SCH (06:41)
[2018-07-04] MEDS: SODIUM CHLORIDE 0.45% 1,000 ML IV SCH (06:42)
[2018-07-04 06:59] VITALS: PULSE 78
[2018-07-04 08:07] LABS: ALBUMIN 3.1 g/dl (3.4-5.0); BILIRUBIN,TOTAL 0.4 mg/dL (0.2-1); CALCIUM 7.7 mg/dL (8.5-10.1); CREATININE 2.7 mg/dL (0.55-1.3); MAGNESIUM 1.6 mg/dL (1.8-2.4); PHOSPHOROUS 4.1 mg/dL (2.5-4.9); POTASSIUM 4.5 mmol/L (3.5-5.1); TOT PROT 5.8 g/dl (6.4-8.2)
[2018-07-04] MEDS: amLODIPine BESYLATE 10 MG TABLET (FP) PO SCH (09:32)
[2018-07-04] MEDS: RANITIDINE HCL 150 MG TABLET (FP) PO SCH (09:32)
[2018-07-04] MEDS: ENOXAPARIN NA (PORCINE) 30 MG/0.3 ML DISP.SYRIN SQ SCH (09:33)
[2018-07-04] MEDS ORDERED: POLYETHYLENE GLYCOL 3350 119 GM BTL PO SCH (10:00)
[2018-07-04 10:21] VITALS: BP 127/68; TEMP 98.8
--- NOTE | 2018-07-04 10:23 | DS ---
Physical Examination Vital Signs: Vital Signs Temperature 98.8 F 07/04/18 10:00 Pulse Rate 78 07/04/18 10:00 Respiratory Rate 20 07/04/18 10:00 Blood Pressure 127/68 07/04/18 10:00 O2 Sat by Pulse Oximetry (%) 98 07/03/18 21:00 Findings/Remarks: pt seen/examined Labs: CBC, BMP 07/01/18 06:00 07/04/18 07:00 Discharge Summary Reason For Visit: DIVERTICULITIS OF INTESTINE Current Active Problems Acute renal failure (Acute) Back pain (Acute) Diverticulitis (Acute) Family history of gastric cancer (Acute) Hypercalcemia (Acute) Hyperlipemia (Acute) Hypertension (Acute) Renal failure (Acute) Condition: Stable - Instructions - Home Medications Comprehensive Discharge Medication List: Ambulatory Orders Pravastatin Sodium [Pravachol -] 40 mg PO HS 05/27/16 Ranitidine [Zantac -] 150 mg PO BID 05/27/16 Acetaminophen [Tylenol .Regular Strength -] 650 mg PO Q6H PRN tablet 07/04/18 Amlodipine Besylate [Norvasc -] 10 mg PO DAILY #30 tablet 07/04/18 Metoprolol Succinate [Toprol XL -] 100 mg PO DAILY tab.sr.24h 07/04/18 hydrALAZINE HCL [Apresoline -] 25 mg PO TID 30 Days #90 tablet 07/04/18
== END 2018-07-04 13:05 | disposition home or self-care (01) | DRG 392 ==
LOC: JER 10:07 → JERBED 15:05 → J5S 20:57
PROVIDERS: ADMIT Internal Medicine; ATTEND Internal Medicine
DX: K57.32 Diverticulitis of large intestine without perforation or abscess without bleeding (principal); N17.9 Acute kidney failure, unspecified; I12.9 Hypertensive chronic kidney disease with stage 1 through stage 4 chronic kidney disease, or unspecified chronic kidney disease; N18.9 Chronic kidney disease, unspecified; Z90.710 Acquired absence of both cervix and uterus; Z88.0 Allergy status to penicillin; E86.0 Dehydration; F17.210 Nicotine dependence, cigarettes, uncomplicated; M54.5 Low back pain; E83.52 Hypercalcemia; R51 Headache; E87.6 Hypokalemia; Z80.0 Family history of malignant neoplasm of digestive organs
CPT/HCPCS: 36415; 70450-TC; 74019-TC-FY; 74176-TC; 76775-TC; 80048; 80053; 81003; 82330; 82436; 82550; 82553; 82565; 83516; 83520; 83615; 83690; 83735; 83970; 84100; 84133; 84155; 84165; 84300; 84550; 85025; 85610; 86038; 86140; 86225; 86256; 86704; 86706; 86708; 87205; 87324; 87340; 87449; 93005; 93010; 99282-25; J0131; J7030